=== PATIENT | female | born 1950 | race Caucasian/White ===

== ENCOUNTER 2021-04-02 18:09 | Inpatient (IN) | payer MEDICARE ==
[2021-04-02] MEDS ORDERED: SODIUM CHLORIDE 0.9% 500 ML 500 ML IV STA (18:34)
[2021-04-02] MEDS ORDERED: ONDANSETRON 4 MG/2 ML VIAL IVP STA (18:35)
[2021-04-02 19:40] LABS: Basophils % (A) 0 %; Eosinophils # (A) 0.1 k/uL (0-0.7); Eosinophils % (A) 1 %; HCT 41.1 % (34.0-46.0); HGB 13.3 gm/dL (11.4-16.0); Lymphocytes # (A) 1.1 k/uL (1.0-4.8); Lymphocytes % (A) 10 %; MCH 30.4 pg (25.0-35.0); MCHC 32.4 g/dL (31.0-37.0); Mean Platelet Volume 7.5; Monocytes # (A) 0.4 k/uL (0-1.0); Monocytes % (A) 4 %; Neutrophils % (A) 84 %; Platelet Count 235 k/uL (150-450); RBC 4.37 m/uL (3.80-5.40); RDW 13.3 % (11.5-15.5); WBC 10.8 k/uL (3.8-10.6)
[2021-04-02 19:52] LABS: ALT 13 U/L (4-34); AST 23 U/L (14-36); African American GFR (CKD) >90 (>60 ml/min/1.73 sqM); Albumin 4.2 g/dL (3.5-5.0); Alkaline Phosphatase 55 U/L (38-126); Anion Gap 11 mmol/L; Blood Urea Nitrogen 33 mg/dL (7-17); Calcium 9.4 mg/dL (8.4-10.2); Carbon Dioxide 23 mmol/L (22-30); Chloride 106 mmol/L (98-107); Glucose 100 mg/dL (74-99); Non-African American GFR(CKD) 90 (>60 ml/min/1.73 sqM); Potassium 4.1 mmol/L (3.5-5.1); Sodium 140 mmol/L (137-145); Total Bilirubin 0.4 mg/dL (0.2-1.3)
--- NOTE | 2021-04-02 20:08 | ED ---
General Adult HPI - General Chief complaint: Neuro Symptoms/Deficit Stated complaint: nausea Time Seen by Provider: 04/02/21 18:11 Source: patient, RN notes reviewed, old records reviewed Mode of arrival: ambulatory Limitations: no limitations - History of Present Illness Initial comments: 70-year-old female presents with sudden onset nausea and blurry vision. Patient was transported by EMS. Just prior to arrival she had developed sensation of blurry vision or perhaps double vision. This was associated with nausea without vomiting. She denies headache. She denies any limb numbness or weakness. She denies any slurred speech. She states that the nausea is present but improved she has some persistent visual disturbance. Her had noted that her left pupil was larger than her right pupil. No previous history of aneurysm. No previous history of CVA or TIA. - Related Data Home Medications Medication Instructions Recorded Confirmed Cetirizine HCl [Zyrtec] 10 mg PO HS 04/02/21 04/02/21 Cholecalciferol [Vitamin D3 (25 25 mcg PO DAILY 04/02/21 04/02/21 Mcg = 1000 Iu)] Cyanocobalamin (Vitamin B-12) 1,000 mcg PO HS 04/02/21 04/02/21 [Vitamin B-12] Fluticasone Nasal [place] [Flonase 1 spray EA NOSTRIL HS 04/02/21 04/02/21 Nasal [place]] Levothyroxine Sodium [Synthroid] 100 mcg PO DAILY 04/02/21 04/02/21 [place] 3-6-7 1 cap PO HS 04/02/21 04/02/21 Ubidecarenone [Co Q-10] 100 mg PO HS 04/02/21 04/02/21 Zinc/Vitamin D 1 tab PO HS 04/02/21 04/02/21 atenoloL [Tenormin] 25 mg PO DAILY 04/02/21 04/02/21 Allergies Allergy/AdvReac Type Severity Reaction Status Date / Time No Known Allergies Allergy Unverified 04/02/21 20:39 Review of Systems ROS Statement: Those systems with pertinent positive or pertinent negative responses have been documented in the HPI. ROS Other: All systems not noted in ROS Statement are negative. Past Medical History History of Any Multi-Drug Resistant Organisms: None Reported Past Psychological History: No Psychological Hx Reported Smoking Status: Never smoker Past Alcohol Use History: None Reported Past Drug Use History: None Reported General Exam Limitations: no limitations General appearance: alert, in no apparent distress Head exam: Present: atraumatic, normocephalic Eye exam: Present: other (Patient has asymmetric pupil exam, 3 mm on the right, 4 mm on the left, both are reactive. ) ENT exam: Present: normal exam Neck exam: Present: normal inspection. Absent: tenderness, meningismus Respiratory exam: Present: normal lung sounds bilaterally. Absent: respiratory distress, wheezes Cardiovascular Exam: Present: regular rate, normal rhythm GI/Abdominal exam: Present: soft. Absent: distended, tenderness, guarding, rebound Extremities exam: Present: normal inspection, normal capillary refill. Absent: pedal edema Neurological exam: Present: alert, oriented X3 Psychiatric exam: Present: normal affect, normal mood Skin exam: Present: warm, dry, intact. Absent: cyanosis, diaphoretic Course Vital Signs 04/02/21 19:40 Temperature 98.7 F Pulse Rate 80 Respiratory 16 Rate Blood Pressure 127/75 O2 Sat by Pulse 99 Oximetry EKG Findings - EKG Comments: EKG Findings:: EKG: Sinus rhythm with PAC rate is 74, DC interval 184, QRS duration 80, QTC 437, no ST segment elevation. Medical Decision Making - Medical Decision Making 70-year-old female with sudden onset of a lesion, nausea without vomiting. Patient has no ataxia on exam. Normal finger to nose, no nystagmus. She has relatively preserved extraocular movements. She has a 4 or 5 mm pupil on the left and a 3 mm pupil on the right. Both are reactive. Her double vision is resolved with unilateral site. Patient has no headache. I did perform CT CT angiography CT is negative for intracranial hemorrhage or mass effect this was performed in less than 2 hours from the onset of symptoms. 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 I did review this finding both with Dr. Gio pool for neurology and with the stroke neurologist Dr. Larios, it is recommended the patient receive MRI and depending on these results she should follow-up with the stroke intervention Dr Larios. Patient will be admitted to internal medicine, Dr. Hernandez, is able to evaluate the patient in the emergency department. - Lab Data Result diagrams: 04/02/21 19:15 04/02/21 19:15 Lab Results 04/02/21 04/02/21 04/02/21 Range/Units 19:15 19:15 19:15 WBC 10.8 H (3.8-10.6) k/uL RBC 4.37 (3.80-5.40) m/uL Hgb 13.3 (11.4-16.0) gm/dL Hct 41.1 (34.0-46.0) % MCV 94.0 (80.0-100.0) fL MCH 30.4 (25.0-35.0) pg MCHC 32.4 (31.0-37.0) g/dL RDW 13.3 (11.5-15.5) % Plt Count 235 (150-450) k/uL MPV 7.5 Neutrophils % 84 % Lymphocytes % 10 % Monocytes % 4 % Eosinophils % 1 % Basophils % 0 % Neutrophils # 9.0 H (1.3-7.7) k/uL Lymphocytes # 1.1 (1.0-4.8) k/uL Monocytes # 0.4 (0-1.0) k/uL Eosinophils # 0.1 (0-0.7) k/uL Basophils # 0.0 (0-0.2) k/uL PT 10.1 (9.0-12.0) sec INR 0.9 (<1.2) APTT 22.0 (22.0-30.0) sec Sodium 140 (137-145) mmol/L Potassium 4.1 (3.5-5.1) mmol/L Chloride 106 (98-107) mmol/L Carbon Dioxide 23 (22-30) mmol/L Anion Gap 11 mmol/L BUN 33 H (7-17) mg/dL Creatinine 0.67 (0.52-1.04) mg/dL Est GFR (CKD-EPI)AfAm >90 (>60 ml/min/1.73 sqM) Est GFR (CKD-EPI)NonAf 90 (>60 ml/min/1.73 sqM) Glucose 100 H (74-99) mg/dL Plasma Lactic Acid Jerman (0.7-2.0) mmol/L Calcium 9.4 (8.4-10.2) mg/dL Magnesium 2.0 (1.6-2.3) mg/dL Total Bilirubin 0.4 (0.2-1.3) mg/dL AST 23 (14-36) U/L ALT 13 (4-34) U/L Alkaline Phosphatase 55 (38-126) U/L Troponin I (0.000-0.034) ng/mL Total Protein 7.0 (6.3-8.2) g/dL Albumin 4.2 (3.5-5.0) g/dL 04/02/21 04/02/21 Range/Units 19:15 19:15 WBC (3.8-10.6) k/uL RBC (3.80-5.40) m/uL Hgb (11.4-16.0) gm/dL Hct (34.0-46.0) % MCV (80.0-100.0) fL MCH (25.0-35.0) pg MCHC (31.0-37.0) g/dL RDW (11.5-15.5) % Plt Count (150-450) k/uL MPV Neutrophils % % Lymphocytes % % Monocytes % % Eosinophils % % Basophils % % Neutrophils # (1.3-7.7) k/uL Lymphocytes # (1.0-4.8) k/uL Monocytes # (0-1.0) k/uL Eosinophils # (0-0.7) k/uL Basophils # (0-0.2) k/uL PT (9.0-12.0) sec INR (<1.2) APTT (22.0-30.0) sec Sodium (137-145) mmol/L Potassium (3.5-5.1) mmol/L Chloride (98-107) mmol/L Carbon Dioxide (22-30) mmol/L Anion Gap mmol/L BUN (7-17) mg/dL Creatinine (0.52-1.04) mg/dL Est GFR (CKD-EPI)AfAm (>60 ml/min/1.73 sqM) Est GFR (CKD-EPI)NonAf (>60 ml/min/1.73 sqM) Glucose (74-99) mg/dL Plasma Lactic Acid Jerman 1.0 (0.7-2.0) mmol/L Calcium (8.4-10.2) mg/dL Magnesium (1.6-2.3) mg/dL Total Bilirubin (0.2-1.3) mg/dL AST (14-36) U/L ALT (4-34) U/L Alkaline Phosphatase (38-126) U/L Troponin I <0.012 (0.000-0.034) ng/mL Total Protein (6.3-8.2) g/dL Albumin (3.5-5.0) g/dL Disposition Clinical Impression: Cerebrovascular accident (CVA), Diplopia, Third nerve palsy of left eye Disposition: ADMITTED IP TO THIS [facility] Condition: Stable Is patient prescribed a controlled substance at d/c from ED?: No Referrals: Nonstaff,Physician [REFERRING] - 1-2 days Time of Disposition: 21:35 Decision to Admit Reason: Admit from EC Decision Date: 04/02/21 Decision Time: 21:35
[2021-04-02 20:12] LABS: INR 0.9 (<1.2); Prothrombin Time 10.1 sec (9.0-12.0)
--- NOTE | 2021-04-02 20:38 | CT ---
EXAMINATION TYPE: CT brain wo con DATE OF EXAM: 04/02/2021 COMPARISON: None HISTORY: weakness, dizziness CT DLP: 1161.2 mGycm Automated exposure control for dose reduction was used. There is cerebral cortical atrophy. There is no mass effect nor midline shift. There is no sign of in tracranial hemorrhage. Calvarium is intact. Skull base is intact. There is normal aeration of the mas toid sinuses. IMPRESSION: Cerebral atrophy. No acute intracranial abnormality.
--- NOTE | 2021-04-02 20:39 | XR ---
EXAMINATION TYPE: XR chest 2V DATE OF EXAM: 04/02/2021 COMPARISON: NONE HISTORY: Weakness TECHNIQUE: 2 view FINDINGS: Heart is normal. Lungs are clear of consolidation. There are no hilar masses. There is mild thoracic dextroscoliosis. There is a mild thoracolumbar kyphotic curvature. IMPRESSION: No active cardiopulmonary disease. Normal heart.
--- NOTE | 2021-04-02 20:53 | CT ---
EXAMINATION TYPE: CT angio head neck DATE OF EXAM: 04/02/2021 COMPARISON: None HISTORY: weakness, dizziness CT DLP: 319.4 mGycm Automated exposure control for dose reduction was used. CONTRAST: Performed with IV Contrast, patient injected with 65cc mL of Isovue 370. Images obtained from the aortic arch to the vertex of the brain with IV contrast. There are 3-D post processed images. There is normal branching pattern of the great vessels on the aortic arch. There is bilateral arteria l flow in the subclavian arteries. There is no evidence of aortic dissection. There is arterial flow in the common internal and external arteries bilaterally. There is arterial flow in both vertebral ar teries. There is wide patency of the carotid artery bifurcations. There is no evidence of carotid or vertebral artery aneurysm or dissection. There is arterial flow in the vertebrobasilar artery system. There is arterial flow in the anterior middle and posterior cerebral arteries bilaterally. There is n o mass effect. There is no sign of intracranial neovascularity. There is no evidence of intracranial arterial stenosis. There is normal enhancement of the venous sinuses. There is bulbous appearance of the tip of the basilar artery. This measures 4.5 mm. IMPRESSION: Negative CT angiogram of the neck. There is a minimal aneurysm of the tip of the basilar artery. Othe rwise negative CT angiogram of the brain.
[2021-04-02] MEDS ORDERED: ASPIRIN 325 MG TAB PO STA (21:25)
[2021-04-02] MEDS ORDERED: ACETAMINOPHEN TAB 325 MG TAB PO PRN (21:25)
[2021-04-02] MEDS: SODIUM CHLORIDE 0.9% 1,000 ML IV SCH (21:39)
--- NOTE | 2021-04-02 22:17 | P.HPIM ---
History of Present Illness H&P Date: 04/02/21 The patient is a 70-year-old female with a PMH of hypothyroidism who presents to the emergency room with complaints of double vision. Patient reports that she was in her usual state of health until about 4:30 PM this evening when she suddenly developed double vision while attempting to get ready to go out. She had her check her eyes, who told her that her pupils were of different size and were not facing the same direction, at which time they decided to come to the emergency room. The patient to denied any history of double vision in the past but states she had a bout of vertigo in 2014 which was self-limiting. She denied experiencing weakness, numbness, tingling, headaches, neck pain. Also denied speech impairment or impaired gait. Denied fever, chills, chest pain, SOB. Reported some nausea which had resolved by the time of interview. Denied abdominal pain or diarrhea. In the emergency room, a head and neck CTA revealed a minimal aneurysm of the tip of the basilar artery but was otherwise unremarkable. Brain CT was unremarkable. CXR was unremarkable. EKG revealed sinus rhythm @ 74 bpm with APCs with no ST-T wave changes noted as reviewed by me. Laboratory evaluation was reviewed. Review of systems: Pertinent positives and negatives as discussed in HPI, a complete review of systems was performed and all other systems are negative. Physical examination: General: non toxic, no distress, appears at stated age, normal weight Derm: no unusual rashes/lesions no unusual ecchymoses, warm, dry Head: atraumatic, normocephalic, symmetric Eyes: Anisocoria with R eye 2 mm and L eye 2.5 - 3 mm, Right eye abducted and depressed, meghann pupils reactive to light, no abnormal nystagmus noted, EOMI otherwise, no ptosis noted, no lid lag, anicteric sclera ENT: Nose and ears atraumatic, no thrush, no pharyngeal erythema Neck: No thyromegaly, no cervical lymphadenopathy, trachea midline, supple Mouth: no lip lesion, mucus membranes moist Cardiovascular: S1S2 reg, no murmur, positive posterior tibial pulse bilateral, no edema, capillary refill less than 2 seconds Lungs: CTA bilateral, no rhonchi, no rales , no accessory muscle use Abdominal: soft, nontender to palpation, no guarding, no appreciable organomegaly, normal bowel sounds Ext: no gross muscle atrophy, muscle strength 5 out of 5 in all 4 extremities grossly, no contractures, Neuro: Light touch intact all 4 extremities, finger to nose within normal limits, no focal deficits noted Psych: Alert, oriented, appropriate affect Assessment/plan Sudden onset diplopia with anisocoria -Suspicious for 3rd nerve palsy -Top differentials include CVA and structural lesions in setting of basilar artery aneurysm albeit small -Neurology consulted -Fall precautions -Neuro checks -Echocardiogram -MATERIAL DAMAGE ADJUSTER eval -Cardiac monitoring Chronic conditions: Hypothyroidism -Continue with home meds DVT prophylaxis -Heparin subq The patient is admitted with an anticipated greate than 2 midnight stay for evaluation of diplopia CODE STATUS: Full Code Discussed with: Patient Anticipated discharge date: 2-[address]: Home Past Medical History History of Any Multi-Drug Resistant Organisms: None Reported Past Psychological History: No Psychological Hx Reported Smoking Status: Never smoker Past Alcohol Use History: None Reported Past Drug Use History: None Reported Medications and Allergies Home Medications Medication Instructions Recorded Confirmed Type Cetirizine HCl [Zyrtec] 10 mg PO HS 04/02/21 04/02/21 History Cholecalciferol [Vitamin D3 (25 25 mcg PO DAILY 04/02/21 04/02/21 History Mcg = 1000 Iu)] Cyanocobalamin (Vitamin B-12) 1,000 mcg PO HS 04/02/21 04/02/21 History [Vitamin B-12] Fluticasone Nasal [place] [Flonase 1 spray EA NOSTRIL HS 04/02/21 04/02/21 History Nasal [place]] Levothyroxine Sodium [Synthroid] 100 mcg PO DAILY 04/02/21 04/02/21 History [place] 3-6-7 1 cap PO HS 04/02/21 04/02/21 History Ubidecarenone [Co Q-10] 100 mg PO HS 04/02/21 04/02/21 History Zinc/Vitamin D 1 tab PO HS 04/02/21 04/02/21 History atenoloL [Tenormin] 25 mg PO DAILY 04/02/21 04/02/21 History Allergies Allergy/AdvReac Type Severity Reaction Status Date / Time No Known Allergies Allergy Unverified 04/02/21 20:39 Physical Exam Vitals: Vital Signs Temp Pulse Resp BP Pulse Ox 04/02/21 19:40 98.7 F 80 16 127/75 99 Intake and Output 04/02/21 04/02/21 04/02/21 06:59 14:59 22:59 Other: Weight 57.606 kg Results CBC & Chem 7: 04/02/21 19:15 04/02/21 19:15 Labs: Abnormal Lab Results - Last 24 Hours (Table) 04/02/21 04/02/21 Range/Units 19:15 19:15 WBC 10.8 H (3.8-10.6) k/uL Neutrophils # 9.0 H (1.3-7.7) k/uL BUN 33 H (7-17) mg/dL Glucose 100 H (74-99) mg/dL
[2021-04-02 23:47] LABS: Appearance,Urine Clear (Clear); Bilirubin,Urine Negative (Negative); Blood,Urine Negative (Negative); Color,Urine Yellow; Glucose,Urine (UA) Negative (Negative); Ketones,Urine 2+ (Negative); Leukocyte Esterase,Urine Negative (Negative); Nitrite,Urine Negative (Negative); Protein,Urine Negative (Negative); Urobilinogen,Urine <2.0 mg/dL (<2.0)
[2021-04-02 23:49] LABS: Specific Gravity,Urine >1.050 (1.001-1.035)
[2021-04-03] MEDS: HEPARIN SODIUM,PORCINE/PF 5,000 UNIT/0.5 ML SYRINGE SQ SCH ×4 (02:00→22:55)
[2021-04-03] MEDS ORDERED: LEVOTHYROXINE 100 MCG TAB PO SCH (06:30)
[2021-04-03 07:00] LABS: HGB 11.9 gm/dL (11.4-16.0); MCH 30.5 pg (25.0-35.0); MCHC 33.1 g/dL (31.0-37.0); MCV 92.1 fL (80.0-100.0); Mean Platelet Volume 7.3; Platelet Count 205 k/uL (150-450); RBC 3.91 m/uL (3.80-5.40); RDW 12.9 % (11.5-15.5); WBC 8.1 k/uL (3.8-10.6)
[2021-04-03 07:38] LABS: African American GFR (CKD) >90 (>60 ml/min/1.73 sqM); Anion Gap 3 mmol/L; Blood Urea Nitrogen 28 mg/dL (7-17); Calcium 9.1 mg/dL (8.4-10.2); Carbon Dioxide 26 mmol/L (22-30); Chloride 110 mmol/L (98-107); Glucose 86 mg/dL (74-99); Non-African American GFR(CKD) 87 (>60 ml/min/1.73 sqM); Potassium 4.3 mmol/L (3.5-5.1); Sodium 139 mmol/L (137-145)
[2021-04-03] MEDS ORDERED: ATORVASTATIN 40 MG TAB PO STA (08:47)
[2021-04-03] MEDS ORDERED: ASPIRIN 325 MG TAB PO SCH (09:00)
[2021-04-03] MEDS ORDERED: ATENOLOL 25 MG PO SCH (09:00)
[2021-04-03] MEDS: ATENOLOL 25 MG PO SCH (09:46)
[2021-04-03] MEDS: THYROXINE PO SCH (09:46)
[2021-04-03] MEDS: SODIUM CHLORIDE 0.9% 1,000 ML IV SCH ×2 (11:12→22:20)
[2021-04-03] MEDS: ASPIRIN 81 MG PO SCH (11:55)
[2021-04-03 11:56] LABS: Chol/HDL Ratio 2.07 Ratio
--- NOTE | 2021-04-03 12:23 | P.CNNES ---
History of Present Illness Consult date: 04/03/21 Requesting physician: George Fabian Reason for Consult: CVA, 3rd CN palsy History of Present Illness: This is a 70-year-old woman who presented emergency department via EMS on 04/02/2021 because of sudden onset of nausea, vomiting and diplopia. Patient presents our facility at around 1809 and noticed double vision associate with nausea and vomiting around possibly 4:30ishpm yesterday. She is accompanied with her . Her noticed that her left pupil is larger than the right. He felt she is having double vision of both eyes and she feels it [id number] and she closes either eye and that resolved. She denied of any headache, any focal weakness or numbness, slurring of the speech. Denies any ringing of the ears or hearing loss. She denies any history of stroke or TIAs in the past. He is not on any antiplatelets or any statins. She denies any history of brain aneurysm that she was told off. Per the patient's nurse her large pupil has resolved on her examination. Patient currently feels the same. Some other workup in the hospital consisted of: She'll vital signs his blood pressure of 127/75, heart rate of 80, RR 16, temperature 98.7F oral and Pulse oxy 99% at Room air. CT of the head is reported as cerebral atrophy. No acute intracranial abnormality. Personally reviewed the CT of the head and there is no acute or subacute ischemia and there is no intraparenchymal hemorrhage. The patient does have bilateral frontal atrophy that is mild to moderate at in significance. Patient had CTA of the head and neck was reported as negative CT angiography of the neck while the patient has minimal aneurysm of the tip of the basilar artery in the body of the report it measures about 4.5 mm. Initial white blood cells 10.8 and the repeat his 8.1 which is normal on the second time and that it's unremarkable of CBC on the second time. Sodium is 140, creatinine is 0.67, glucose is 100, calcium 9.4, magnesium 2.0, AST of 23 and ALT of 13. Urinalysis is negative for urinary tract infection. Coronavirus PCR is undetected The ED team spoke to me via phone regarding that the patient and I notified them to speak with the stroke team regarding the aneurysm. The ED team spoke with Rj Larios and recommended MRI and depending on the result follow up with stroke intervention with a Dr. Larios. Review of Systems Review of system: The 12 point system was reviewed and apparent positive and negative per HPI. Past Medical History History of Any Multi-Drug Resistant Organisms: None Reported Past Psychological History: No Psychological Hx Reported Smoking Status: Never smoker Past Alcohol Use History: None Reported Past Drug Use History: None Reported - Past Family History Father Family Medical History: Cancer Additional Family Medical History / Comment(s): Father had lung cancer. He was a smoker. Mother Family Medical History: Musculoskeletal Disorder, Neurologic Disorder Additional Family Medical History / Comment(s): Mother had parkinson's Medications and Allergies Home Medications Medication Instructions Recorded Confirmed Type Cetirizine HCl [Zyrtec] 10 mg PO HS 04/02/21 04/02/21 History Cholecalciferol [Vitamin D3 (25 25 mcg PO DAILY 04/02/21 04/02/21 History Mcg = 1000 Iu)] Cyanocobalamin (Vitamin B-12) 1,000 mcg PO HS 04/02/21 04/02/21 History [Vitamin B-12] Fluticasone Nasal [place] [Flonase 1 spray EA NOSTRIL HS 04/02/21 04/02/21 History Nasal [place]] Levothyroxine Sodium [Synthroid] 100 mcg PO DAILY 04/02/21 04/02/21 History [place] 3-6-7 1 cap PO HS 04/02/21 04/02/21 History Ubidecarenone [Co Q-10] 100 mg PO HS 04/02/21 04/02/21 History Zinc/Vitamin D 1 tab PO HS 04/02/21 04/02/21 History atenoloL [Tenormin] 25 mg PO DAILY 04/02/21 04/02/21 History Allergies Allergy/AdvReac Type Severity Reaction Status Date / Time No Known Allergies Allergy Unverified 04/02/21 20:39 Physical Examination - Vital Signs Vital Signs: Vital Signs Temp Pulse Pulse Resp BP BP Pulse Ox 04/03/21 07:55 98.6 F 77 16 121/87 98 04/03/21 06:04 82 16 127/87 95 04/03/21 01:00 58 L 16 110/68 93 L 04/02/21 22:15 79 16 133/81 98 04/02/21 19:40 98.7 F 80 16 127/75 99 Intake and Output 04/02/21 04/03/21 04/03/21 22:59 06:59 14:59 Other: Weight 57.606 kg GENERAL: The patient is lying in bed and is not in acute distress. CHEST: The heart rate is regular rate rhythm. No murmurs to auscultation. No carotid bruit bilaterally. LUNG: Clear to auscultation bilaterally no wheezing noted throughout. Not labored breathing. ABDOMEN/GI: Bowel sounds present in all 4 quadrants. No tenderness to palpation throughout. NEUROLOGICAL: Higher mental function: The patient is awake, alert, oriented to self, place and time. Patient is following commands. No aphasia and no neglect. Cranial nerves: The pupils are round, equal (3mm) bilaterally and reactive to light and accommodation. Visual [place] are full to confrontation throughout. She has diplopia when both eyes are open but resolves when either eye is close. Extraocular movement: Seems some restriction in moving eyes upwards bilaterally. No appreciable nystagmus. Facial sensation is normal to touch throughout. The facial strength is normal throughout. Hearing is normal bilaterally to hand rub. Tongue is midline and moved [id number] without any difficulty. No dysarthria is noted. Shoulder shrug is normal bilaterally. Motor: The strength is 5 over 5 throughout. Normal tone and bulk. Cerebellum: Normal finger to nose heel to davis bilaterally. Sensation: Sensation is normal to touch throughout. Reflexes (right/left): 2+ throughout. Plantars are downgoing bilaterally. Results - Laboratory Findings CBC and BMP: 04/03/21 05:43 04/03/21 05:43 Abnormal Lab Findings: Abnormal Labs 04/02/21 04/02/21 04/02/21 19:15 19:15 22:51 WBC 10.8 H Neutrophils # 9.0 H Chloride BUN 33 H Glucose 100 H Ur Specific [place] >1.050 H Urine Ketones 2+ H 04/03/21 05:43 WBC Neutrophils # Chloride 110 H BUN 28 H Glucose Ur Specific [place] Urine Ketones Assessment and Plan Assessment: Diplopia over both eyes (resolves covering either eye) and had ?enlarged pupil on the left per (but today's examination equal size) and on examination had vertical gaze defect. Unsure exact cause. I think possibly the basilar aneurysm is incidental finding. Rule out stroke. Left Basilar aneurysm (4.5mm on CTA) Plan: I ordered MRI of the brain without and Ordered MRA head. ASA 325mg was given once. Patient was started on ASA 81mg daily and Lipitor 40mg qhs. 2D echo, Lipid panel, HbA1c. PT, OT and AUTO FLEET MAINTENANCE MANAGER are consulted. Consulted Ophthalmology consultation. Continue neuro checks Continue Cardiac monitoring Will defer the rest of medical management to the primary team. Regarding patient's basilar aneurysm. Patient is to follow-up with Dr. Larios as outpatient. Thank you for the consultation. Mansoor Powers MD Neuro-Hospitalist Time with Patient: Greater than 30
--- NOTE | 2021-04-03 12:59 | MR ---
MR brain without contrast HISTORY: Visual disturbance, cerebrovascular accident, double vision, weakness and vertigo Multiplanar multisequence imaging obtained through the brain and correlated to prior CT brain 021 There is restricted diffusion seen at the level of the left occipital cortex, axial image 16 series 5 03 and 505, corresponding increase signal noted on inversion recovery and T2-weighted sequences, smal l focus of increased signal also noted consistent with restricted diffusion within the region of the posterior aspect of the red nucleus on the left, possibly the medial longitudinal fasciculus and [place] nucleus, possible involvement of the oculomotor nucleus. Scattered periventricular, subc ortical hyperintensities present on inversion recovery T2-weighted sequences. There is no evident hem orrhage or hydrocephalus. There are expected vascular flow voids. Orbits show interpreted globe on th e right as compared to the left consistent with patient's history. Inflammatory change present in the ethmoid air cells. Cerebellopontine angles, corpus callosum, pituitary, cervical medullary junction are within normal limits. Cortical atrophy is noted. IMPRESSION: Findings consistent with cerebral vascular infarcts as described, age-related atrophy and probable chronic small vessel ischemia
--- NOTE | 2021-04-03 13:08 | MR ---
EXAMINATION TYPE: MR angio head wo con DATE OF EXAM: 04/03/2021 COMPARISON: MR brain same date HISTORY: Aneurysm - Basilar? / Double Vision, cerebrovascular accident TECHNIQUE: Time of flight images focusing on the [place] were performed without contrast. Th ree-dimensional reconstructions performed on an alternate workstation. FINDINGS: Anterior and posterior circulation are patent and intact. No evident dissection, aneurysm, stenosis, or embolus. IMPRESSION: Unremarkable MRA [place]
[2021-04-03] MEDS ORDERED: ARTIFICIAL TEARS-HYPROMELLOSE DROPS 15 ML BTL BOTH EYES PRN (13:14)
[2021-04-03] MEDS ORDERED: TROPICAMIDE 1% OPHTH DROPS 2 ML BTL BOTH EYES ONE (13:14)
[2021-04-03] MEDS ORDERED: PROPARACAINE 0.5% OPHTH DROPS 15 ML BTL BOTH EYES STA (13:14)
[2021-04-03] MEDS: PHENYLEPHRINE 2.5% OPHTH DRP 2ML BOTH EYES SCH (14:02)
--- NOTE | 2021-04-03 14:49 | P.PN ---
Subjective Progress Note Date: 04/03/21 MRI Brain demonstrates multiple CVAs. Pt still with diplopia. Objective - Vital Signs Vital signs: Vital Signs Temp 98.6 F 04/03/21 07:55 Pulse 73 04/03/21 11:53 Resp 16 04/03/21 11:53 BP 137/74 04/03/21 11:53 Pulse Ox 97 04/03/21 11:53 Intake & Output 04/02/21 04/03/21 04/03/21 18:59 06:59 18:59 Intake Total 250 Balance 250 Weight 57.606 kg 57.606 kg Intake: Oral 250 - Exam Gen: awake, alert HEENT: normocephalic, atraumatic, good hearing acuity, moist mucous membranes Resp: good air exchange, breathing comfortably with no accessory muscle use CVS: good distal perfusion x 4, GI: soft, NTTP, ND : no SPT, no CVAT, barriga catheter not present MSK: no pitting edema, no clubbing Neuro: 5 out of 5 motor strength, no sensory deficits Psych: cooperative, euthymic mood - Labs CBC & Chem 7: 04/03/21 05:43 04/03/21 05:43 Labs: Abnormal Lab Results - Last 24 Hours (Table) 04/02/21 04/02/21 04/02/21 Range/Units 19:15 19:15 22:51 WBC 10.8 H (3.8-10.6) k/uL Neutrophils # 9.0 H (1.3-7.7) k/uL Chloride (98-107) mmol/L BUN 33 H (7-17) mg/dL Glucose 100 H (74-99) mg/dL HDL Cholesterol (40.00-60.00) mg/dL Ur Specific [place] >1.050 H (1.001-1.035) Urine Ketones 2+ H (Negative) 04/03/21 Range/Units 05:43 WBC (3.8-10.6) k/uL Neutrophils # (1.3-7.7) k/uL Chloride 110 H (98-107) mmol/L BUN 28 H (7-17) mg/dL Glucose (74-99) mg/dL HDL Cholesterol 85.70 H (40.00-60.00) mg/dL Ur Specific [place] (1.001-1.035) Urine Ketones (Negative) Assessment and Plan Assessment: Sudden onset diplopia with anisocoria Acute Stroke -Neurology consulted -Fall precautions -Neuro checks -Echocardiogram -DIRECTOR OF ESTATE eval -Cardiac monitoring -ASA, Statin ordered -Cardiology consulted for BC Chronic conditions: Hypothyroidism -Continue with home meds DVT prophylaxis -Heparin subq The patient is admitted with an anticipated greate than 2 midnight stay for evaluation of diplopia CODE STATUS: Full Code Discussed with: Patient Anticipated discharge date: 2-[address]: Home
--- NOTE | 2021-04-03 17:46 | ECHOF ---
Referral Reason:Thrombus MEASUREMENTS -------- HEIGHT: 165.1 cm WEIGHT: 57.6 kg BP: RVIDd: 2.3 cm (< 3.3) IVSd: 1.3 cm (0.6 - 1.1) LVIDd: 3.4 cm (3.9 - 5.3) LVPWd: 1.5 cm (0.6 - 1.1) IVSs: 1.5 cm LVIDs: 2.8 cm LVPWs: 1.2 cm LA Diam: 3.1 cm (2.7 - 3.8) Ao Diam: 3.1 cm (2.0 - 3.7) AV Cusp: 1.5 cm (1.5 - 2.6) LA Diam: 3.9 cm (2.7 - 3.8) MV EXCURSION: 27.766 mm (> 18.000) MV EF SLOPE: 135 mm/s (70 - 150) EPSS: 0.5 cm MV E Deepak: 0.69 m/s MV DecT: 171 ms MV A Deepak: 0.68 m/s MV E/A Ratio: 1.02 AR PHT: 559 ms RAP: 5.00 mmHg RVSP: 29.66 mmHg FINDINGS -------- Sinus rhythm. This was a technically good study. LV size, wall thickness and systolic function are normal, with an EF greater than 55%. The left [place] tricular size is normal. The right ventricle is normal in size. The left atrial size is normal. The right atrial size is normal. There is mild aortic regurgitation. Mild mitral regurgitation is present. Mild tricuspid regurgitation present. Right ventricular systolic pressure is normal at < 35 mmHg. There is no pulmonic regurgitation present. There is no pericardial effusion. CONCLUSIONS -------- 1. LV size, wall thickness and systolic function are normal, with an EF greater than 55%. 2. The left ventricular size is normal. 3. The right ventricle is normal in size. 4. The left atrial size is normal. 5. The right atrial size is normal. 6. There is mild aortic regurgitation. 7. Mild mitral regurgitation is present. 8. Mild tricuspid regurgitation present. 9. There is no pericardial effusion. CROZE CUTTER: Tara Swan RDCS
--- NOTE | 2021-04-03 18:08 | P.CON ---
Consult Note - . Consult date: 04/03/21 Assessment/Plan:: This is a 70 y/o female who presents with history of obtaining a Covid-19 nasal swabbing and then about 2-3 hours later having a significant change in her perception of the world around her. She became aware of a strange feeling with a noted double vision. She noted with the right eye she appreciated objects up and to her right, and left slightly down and left. She feels the sensation which is associated with her double vision was similar a while ago to when she experienced vertigo and through [place] maneuvers and time have since resolved. Her current appreciation of diplopia has not improved or necessarily worsened since this episode began. She denied any additional neurological symptoms, e.g., weakness, slurring of speech, lack of sensation or any other signs or symptoms of a neurological nature. She and her presented to the ER very shortly after the onset of symptoms. 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 Her past ophthalmic history is unremarkable for any surgical intervention or underlying problems, including any previous history of childhood strabismus or amblyopia. Her glasses were updated in 2019, and was told that she is developing cataracts and was under suspicion for possible glaucoma, none of which has been actively treated at this time. Her current medications are significant for atenolol and levothyroxine. There is no noted history of underlying problems. However, nursing staff has noted there was a distant past DVT of a lower extremity, and possible cardiac arrhythmia. PE: VA w/ glasses 20/20 OD, 20/20 OS IOP: Tonopen 15 mm Hg OD, 16 mm Hg OS Pupils: mild ansicoria without any overt APD appreciated EOM: movement is variable in each of the eyes. There is diplopia in nearly all escobedo of gaze. for the most part lateral rectus is intact OU, There is signficant loss of vertical gaze both upwards as well as downwards. There is a vertical nystagmus especially in upgaze but noted more predominantly right sided as well as horizontal more in abduction than adduction. I cannot appreciate an especially "down and out gaze" from either eye, but a general lack of coordination when performing versions. Both eyes demonstrate a slightly different amount of deviation in different directions. The right eye over adducts straight ahead, either will demonstrate an exotropia at different points while performing versions. CF: normal OU Ext: no overt facial faccidity Dilated: neosynephrine & tropicamide @ 1400. expected dilation ~ 6-7 SLE: Lids/lashses; normal Conjunctiva:white/quiet Cornea: clear AC: deep quiet Iris: no pathology, no weakness on constriction with light Lens: 2+ NS, 2+CS OD>OS Vit: normal age-related PVD Optic nerve: S/F/P C:D 0.35 Mac: quiet, mild FLR reflex Vascular: normal caliber without attenuation/crossing/Hollenhorsts Peripheral: unremarkable A: 1) new onset diplopia, primarily left-sided SIVA, but cannot totally rule out possible bilateral involvement. There is no vertical movement in either eye, nystagmus noted vertically as well as horizontally especially on right lateral gaze. I believe my supposition is supported by the read noted on the MRI. There is no noted 3rd nerve palsy on my examination P: I appreciate your consideration for consultation, and will provide more complete assessment or her problem on discharge. There I can attempt to reduce if not alleviate patient's symptoms with appropriate corrective options, over time.
[2021-04-03] MEDS: FLUTICASONE 50MCG/SPRAY NASAL 16GM EA NOSTRIL SCH (20:07)
[2021-04-03] MEDS: CLOPIDOGREL 75 MG TAB PO SCH (20:07)
[2021-04-03] MEDS ORDERED: ATORVASTATIN 40 MG TAB PO SCH (21:00)
[2021-04-04] MEDS ORDERED: fentaNYL (PF) 50 MCG/ML 2 ML AMP ONE (09:52)
[2021-04-04] MEDS ORDERED: SODIUM CHLORIDE 0.9% 500 ML 500 ML IV ONE (10:23)
[2021-04-04] MEDS ORDERED: BENZOCAINE SPRAY 1 CAN MUCOUS MEM ONE (10:43)
[2021-04-04] MEDS ORDERED: METOPROLOL TARTRATE 5 MG/5 ML VIAL IVP ONE (10:45)
--- NOTE | 2021-04-04 10:46 | P.CRDCN ---
History of Present Illness History of present illness: HISTORY OF PRESENTING ILLNESS This is a pleasant 70-year-old female past medical history significant for hypothyroidism. 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 We have been asked to see in consultation for BC. Patient presented to the emergency department on 04/02/21 with complaints of double vision. At around 4:30 PM 04/02 she suddenly developed double vision while attempting to get ready to go out. She had her check her eyes, who told her that her pupils were of different size and were not facing the same direction, at which time they decided to come to the emergency room. She denied experiencing weakness, numbness, tingling, headaches, neck pain. Also denied speech impairment or impaired gait. Denied fever, chills, chest pain, SOB. She denies history of CAD, LA, prior Stroke or TIAs, diabetes or hyperlipidemia. DIAGNOSTICS EKG reveals sinus rhythm, heart rate 74, PACs, no significant ST-T wave abnormalities. MRI brain revealed cerebral vascular infarcts, age related atrophy and probably chronic small vessel ischemia CT of the head is reported as cerebral atrophy. No acute intracranial abnormality. CTA of the head and neck was reported as negative CT angiography of the neck while the patient has minimal aneurysm of the tip of the basilar artery in the body of the report it measures about 4.5 mm. Head MRA was unremarkable. Chest xray no acute cardiopulmonary process. Laboratory reviewed, WBC 8.1, hemoglobin 11.9, stool 5, sodium 139, potassium 4.3, BUN 28, serum creatinine 0.7, triglycerides 42, cholesterol 177, LDL 82, HDL 85 Current home medications include atenolol 25 mg daily, Synthroid, vitamin B12, vitamin D 3, Zyrtec REVIEW OF SYSTEMS At the time of my exam: CONSTITUTIONAL: Denies fever or chills. CARDIOVASCULAR: Denies chest pain, shortness of breath, orthopnea, PND or palpitations. RESPIRATORY: Denies cough. GASTROINTESTINAL: Denies abdominal pain, diarrhea, constipation, nausea or vomiting. MUSCULOSKELETAL: Denies myalgias. NEUROLOGIC: Denies numbness, tingling, headacbe or weakness. ENDOCRINE: Denies fatigue, weight change, polydipsia or polyurina. GENITOURINARY: Denies burning, hematuria or urgency with micturation. HEMATOLOGIC: Denies history of anemia or bleeding. PHYSICAL EXAMINATION Blood pressure 122/73, heart 69, afebrile, saturations greater than 92% on room air CONSTITUTIONAL: No apparent distress. HEENT: Head is normocephalic. Pupils are equal, round. Sclerae anicteric. Mucous membranes of the mouth are moist. No JVD. No carotid bruit. CHEST EXAMINATION: Lungs are clear to auscultation. No chest wall tenderness is noted on palpation or with deep breathing. HEART EXAMINATION: Regular rate and rhythm. S1, S2 heard. No murmurs, gallops or rub. ABDOMEN: Soft, nontender. Positive bowel sounds. EXTREMITIES: 2+ peripheral pulses, no lower extremity edema and no calf tenderness. NEUROLOGIC EXAMINATION: Patient is awake, alert and oriented x3. ASSESSMENT Diplopia CVA seen on MRI Brain History of hypothyroidism PLAN Plan for BC today with Dr. Rios I have discussed the risks, benefits and alternative therapies for the above- mentioned procedure and for both sedation/analgesia, if indicated, as they pertain to this patient. The patient has indicated understanding and acceptance of the risks and procedures discussed. Questions have been answered appropriately and she is agreeable to move forward with the above-stated procedure. Nurse Practitioner note has been reviewed, I agree with a documented findings and plan of care. Patient was seen and examined. Past Medical History Past Medical History: Cancer, Deep Vein Thrombosis (DVT), GERD/Reflux, Supraventricular Tachycardia (SVT), Thyroid Disorder, Vascular Disorder Additional Past Medical History / Comment(s): Hypothyroid, 2015 vertigo, uterine cancer with surgery, skin cancer on neck treated with radiation, DVT R leg 30 plus years ago after travelling, occasional cervical and back pain/scoliosis, varicosities, seasonal allergies. History of Any Multi-Drug Resistant Organisms: None Reported Past Surgical History: Tonsillectomy Additional Past Surgical History / Comment(s): Uterine conization, artery or vein tied off d/t DVT. Past Anesthesia/Blood Transfusion Reactions: No Reported Reaction, Motion Sickness Past Psychological History: No Psychological Hx Reported Smoking Status: Never smoker Past Alcohol Use History: None Reported Past Drug Use History: None Reported - Past Family History Father Family Medical History: Cancer Additional Family Medical History / Comment(s): Father had lung cancer. He was a smoker. Mother Family Medical History: Musculoskeletal Disorder, Neurologic Disorder Additional Family Medical History / Comment(s): Mother had parkinson's Medications and Allergies Home Medications Medication Instructions Recorded Confirmed Type Cetirizine HCl [Zyrtec] 10 mg PO HS 04/02/21 04/02/21 History Cholecalciferol [Vitamin D3 (25 25 mcg PO DAILY 04/02/21 04/02/21 History Mcg = 1000 Iu)] Cyanocobalamin (Vitamin B-12) 1,000 mcg PO HS 04/02/21 04/02/21 History [Vitamin B-12] Fluticasone Nasal [place] [Flonase 1 spray EA NOSTRIL HS 04/02/21 04/02/21 History Nasal [place]] Levothyroxine Sodium [Synthroid] 100 mcg PO DAILY 04/02/21 04/02/21 History [place] 3-6-7 1 cap PO HS 04/02/21 04/02/21 History Ubidecarenone [Co Q-10] 100 mg PO HS 04/02/21 04/02/21 History Zinc/Vitamin D 1 tab PO HS 04/02/21 04/02/21 History atenoloL [Tenormin] 25 mg PO DAILY 04/02/21 04/02/21 History Allergies Allergy/AdvReac Type Severity Reaction Status Date / Time No Known Allergies Allergy Unverified 04/02/21 20:39 Physical Exam Vitals: Vital Signs Temp Pulse Pulse Resp BP BP Pulse Ox 04/03/21 11:53 73 16 137/74 97 04/03/21 07:55 98.6 F 77 16 121/87 98 04/03/21 06:04 82 16 127/87 95 04/03/21 01:00 58 L 16 110/68 93 L 04/02/21 22:15 79 16 133/81 98 04/02/21 19:40 98.7 F 80 16 127/75 99 Intake and Output 04/02/21 04/03/21 04/03/21 22:59 06:59 14:59 Intake Total 250 Balance 250 Intake: Oral 250 Other: Weight 57.606 kg 57.606 kg Results 04/03/21 05:43 04/03/21 05:43 Cardiac Enzymes 04/02/21 04/02/21 Range/Units 19:15 19:15 AST 23 (14-36) U/L Troponin I <0.012 (0.000-0.034) ng/mL Coagulation 04/02/21 Range/Units 19:15 PT 10.1 (9.0-12.0) sec APTT 22.0 (22.0-30.0) sec Lipids 04/03/21 Range/Units 05:43 Triglycerides 42.60 (0.00-149.00) mg/dL Cholesterol 177.00 (0.00-200.00) mg/dL HDL Cholesterol 85.70 H (40.00-60.00) mg/dL Cholesterol/HDL Ratio 2.07 Ratio CBC 04/02/21 04/03/21 Range/Units 19:15 05:43 WBC 10.8 H 8.1 (3.8-10.6) k/uL RBC 4.37 3.91 (3.80-5.40) m/uL Hgb 13.3 11.9 (11.4-16.0) gm/dL Hct 41.1 36.0 (34.0-46.0) % Plt Count 235 205 (150-450) k/uL Comprehensive Metabolic Panel 04/02/21 04/03/21 Range/Units 19:15 05:43 Sodium 140 139 (137-145) mmol/L Potassium 4.1 4.3 (3.5-5.1) mmol/L Chloride 106 110 H (98-107) mmol/L Carbon Dioxide 23 26 (22-30) mmol/L BUN 33 H 28 H (7-17) mg/dL Creatinine 0.67 0.71 (0.52-1.04) mg/dL Glucose 100 H 86 (74-99) mg/dL Calcium 9.4 9.1 (8.4-10.2) mg/dL AST 23 (14-36) U/L ALT 13 (4-34) U/L Alkaline Phosphatase 55 (38-126) U/L Total Protein 7.0 (6.3-8.2) g/dL Albumin 4.2 (3.5-5.0) g/dL Current Medications Generic Name Dose Route Start Last Admin Trade Name Freq PRN Reason Stop Dose Admin Acetaminophen 650 mg 04/02/21 21:25 Acetaminophen Tab 325 Mg Tab PO Q6HR PRN Pain Artificial Tears 1 drops 04/03/21 13:14 Artificial Tears-Hypromellose Drops 15 Ml Btl BOTH EYES QID PRN Dry Eye(s) Aspirin 81 mg 04/03/21 09:00 12/22/21 11:55 Aspirin 81 Mg PO 81 mg DAILY SHIRA Administration Atorvastatin Calcium 40 mg 04/04/21 21:00 Atorvastatin 40 Mg Tab PO HS SHIRA Fluticasone Propionate 1 spray 04/03/21 21:00 Fluticasone 50mcg/[place] Nasal 16gm EA NOSTRIL HS SHIRA Heparin Sodium (Porcine) 5,000 unit 04/03/21 00:00 04/03/21 11:55 Heparin Sodium,Porcine/Pf 5,000 Unit/0.5 Ml Syringe SQ 5,000 unit Q8HR SHIRA Administration Sodium Chloride 1,000 mls @ 75 mls/hr 04/02/21 21:15 04/03/21 11:12 Saline 0.9% IV Not Given .[id number] SHIRA Thyroxine 100mcg 1 each 04/03/21 09:30 04/03/21 09:46 Tablet PO 1 each DAILY@0630 SHIRA Administration Tenormin *Selvin* 25 Mg 25 mg 04/03/21 09:30 04/03/21 09:46 Tab PO 25 mg DAILY SHIRA Administration Phenylephrine HCl 1 drops 04/03/21 13:15 04/03/21 14:02 Phenylephrine 2.5% Ophth Drp 2ml BOTH EYES Not Given DIRECTED SHIRA Intake and Output 04/02/21 04/03/21 04/03/21 22:59 06:59 14:59 Intake Total 250 Balance 250 Intake: Oral 250 Other: Weight 57.606 kg 57.606 kg Patient Weight 04/04/21 06:59 Weight 57.606 kg 04/03/21 05:43 04/03/21 05:43
[2021-04-04] MEDS ORDERED: fentaNYL (PF) 50 MCG/ML 5 ML AMP IV ONE (10:49)
[2021-04-04] MEDS ORDERED: MIDAZOLAM 2 MG/2 ML VIAL IV ONE ×2 (10:49→10:53)
[2021-04-04] MEDS: HEPARIN SODIUM,PORCINE/PF 5,000 UNIT/0.5 ML SYRINGE SQ SCH ×3 (10:51→23:00)
--- NOTE | 2021-04-04 10:55 | P.PN ---
Subjective Progress Note Date: 04/04/21 The patient is seen at bedside and feels about the same. She denies of any focal weakness, numbness, dysphagia. She continues to have diplopia of both eyes and when covers either eye. Objective - Vital Signs Vital signs: Vital Signs Temp 98.2 F 04/04/21 07:47 Pulse 71 04/04/21 07:47 Resp 20 04/04/21 07:47 BP 133/73 04/04/21 07:47 Pulse Ox 98 04/04/21 07:47 Intake & Output 04/03/21 04/04/21 04/04/21 18:59 06:59 18:59 Intake Total 368 10 Balance 368 10 Weight 57.606 kg Intake: IV 10 0.9 10 Oral 368 Other: Voiding Method Toilet # Voids 1 - Exam GENERAL: The patient is lying in bed and is not in acute distress. NEUROLOGICAL: Higher mental function: The patient is awake, alert, oriented to self, place and time. Patient is following commands. No aphasia and no neglect. Cranial nerves: The pupils are round, equal (3mm) bilaterally and reactive to light and accommodation. Visual escobedo are full to confrontation throughout. She has diplopia when both eyes are open but resolves when either eye is close. Extraocular movement: Seems some restriction in moving eyes upwards bilaterally and partial SIVA on left. Patient has rotatory nystagmus looking to the left and looking upwards. Facial sensation is normal to touch throughout. The facial strength is normal throughout. Hearing is normal bilaterally to hand rub. Tongue is midline and moved [id number] without any difficulty. No dysarthria is noted. Shoulder shrug is normal bilaterally. Motor: The strength is 5 over 5 throughout. Normal tone and bulk. Cerebellum: Normal finger to nose heel to davis bilaterally. Sensation: Sensation is normal to touch throughout. Reflexes (right/left): 2+ throughout. Plantars are downgoing bilaterally. WORK-UP: AST of 23 and ALT of 13. Coronavirus PCR is undetected HbA1c: 5.2 Lipid Panel: TG 42, Cholestrol 177, LDL [address] of the head is reported as cerebral atrophy. No acute intracranial abnormality. Personally reviewed the CT of the head and there is no acute or subacute ischemia and there is no intraparenchymal hemorrhage. The patient does have bilateral frontal atrophy that is mild to moderate at in significance. Patient had CTA of the head and neck was reported as negative CT angiography of the neck while the patient has minimal aneurysm of the tip of the basilar artery in the body of the report it measures about 4.5 mm. MRI the brain is reported as finding consistent with cerebral vascular infarcts. In the body of the report it is reported in the left occipital cortex as well as the posterior aspect of the red nucleus of the on the left possibly the medial longitudinal fasciculus and and finger Katie nucleus possible involvement of the oculomotor nucleus. While MRA of the head is reported as unremarkable MRA of [place] 2D echo: Reported as left ventricle size wall thickness and systolic functions are normal with ejection fraction greater than 55%. Left atrial size is normal. - Labs CBC & Chem 7: 04/03/21 05:43 04/03/21 05:43 Labs: Abnormal Lab Results - Last 24 Hours (Table) 04/03/21 Range/Units 05:43 HDL Cholesterol 85.70 H (40.00-60.00) mg/dL Assessment and Plan Assessment: Acute ischemic stroke (new onset diplopia on both eyes, upward vertical movement defect and partial left SIVA on examination). MRI showed stroke on left midbrain and left occipital. No IV tpa since outside window (and very low NIH stroke). Etiology appears embolic. 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 Continue dual antiplatelets for 21 days and after 21 days to remain only on ASA 81mg daily. Decrease Lipitor to 20mg qhs for secondary stroke prophylaxis. Primary team consulted cardiology for BC. I ordered Event monitor for 30 days and for patient to follow-up with cardiology to rule out any a-fib or flutter. PT, OT and FARM CROPS TEACHER are consulted. Ophthalmology team is on board. Continue neuro checks Continue Cardiac monitoring Will defer the rest of medical management to the primary team. Regarding patient's ?basilar aneurysm seen on CTA. Patient is to follow-up with Dr. Larios (interventional neurologist at [phone]) as outpatient. Upon discharge, the patient to follow-up with a neurologist within 1-2 weeks. The plan is discussed with the patient and her who is at bedside. I also discussed case with primary and Ophthalmology teams. Mansoor Powers MD Neuro-Hospitalist Time with Patient: Less than 30
[2021-04-04] MEDS: THYROXINE PO SCH (13:07)
[2021-04-04] MEDS: ASPIRIN 81 MG PO SCH (13:07)
[2021-04-04] MEDS: CLOPIDOGREL 75 MG TAB PO SCH (13:07)
[2021-04-04] MEDS: PHENYLEPHRINE 2.5% OPHTH DRP 2ML BOTH EYES SCH (13:09)
--- NOTE | 2021-04-04 14:10 | P.TEE ---
Indications for Procedure(s): CVA Date of Procedure: 04/04/21 Preoperative Diagnosis: CVA, rule out cardiac source of emboli Postoperative Diagnosis: Normal BC Procedure(s) Performed: BC Description of Procedure(s): INDICATION: This is a 70-year-old female who was admitted to the hospital with the symptoms of diplopia and a diagnosis of CVA. BC examination is requested to rule out Cardec source of emboli CONSENT: Informed verbal consent is obtained from the patient PROCEDURE: Patient was brought to the lab in a fasting state. She was prepped and draped in the usual fashion. She was given 2.5 mg of Versed and 25 mics of fentanyl. The throat was sprayed with the hurricane. A lubricated Omni probe was introduced in the oropharynx and was advanced into the esophagus. Multiple views were obtained. Color, pulsed and continuous Doppler studies were done. Saline contrast bubble injection was performed. Patient tolerated the procedure well. No immediate competitions FINDINGS: The aortic valve is tricuspid and seemed to be functioning normally with trace regurgitation. Aortic root appeared to be normal. There is no plaque in the aorta. The left atrial appendage appeared free of any clot. The atrial sizes appear to be normal. The mitral and tricuspid valve appeared to be normal. The interatrial septum appeared to be intact without any spontaneous shunt. Saline contrast bubble injection did not reveal any evidence of crossing of the bubbles across the septum. Left trigger function appeared within normal IMPRESSION: . Normal valvular function, except trace aortic regurgitation. No clot in left atrial appendage. No PFO. Normal LV function. Aorta appeared to be free of any plaque PLAN: Continue to look for other causes of CVA. Continue current medical therapy
[2021-04-04] MEDS: ATENOLOL 25 MG PO SCH (17:04)
[2021-04-04] MEDS: FLUTICASONE 50MCG/SPRAY NASAL 16GM EA NOSTRIL SCH (19:53)
[2021-04-04] MEDS ORDERED: ATORVASTATIN 40 MG TAB PO SCH (21:00)
[2021-04-04] MEDS ORDERED: ATORVASTATIN 20 MG TAB PO SCH (21:00)
[2021-04-05] MEDS: THYROXINE PO SCH (06:43)
[2021-04-05 06:51] LABS: Basophils # (A) 0.1 k/uL (0-0.2); Basophils % (A) 1 %; Eosinophils # (A) 0.2 k/uL (0-0.7); Eosinophils % (A) 3 %; HCT 39.2 % (34.0-46.0); HGB 12.7 gm/dL (11.4-16.0); Lymphocytes # (A) 2.6 k/uL (1.0-4.8); Lymphocytes % (A) 35 %; MCH 29.8 pg (25.0-35.0); MCHC 32.5 g/dL (31.0-37.0); MCV 91.7 fL (80.0-100.0); Mean Platelet Volume 7.5; Monocytes # (A) 0.5 k/uL (0-1.0); Monocytes % (A) 7 %; Neutrophils # (A) 3.9 k/uL (1.3-7.7); Neutrophils % (A) 53 %; Platelet Count 223 k/uL (150-450); RBC 4.28 m/uL (3.80-5.40); RDW 12.9 % (11.5-15.5); WBC 7.5 k/uL (3.8-10.6)
[2021-04-05 07:01] LABS: African American GFR (CKD) >90 (>60 ml/min/1.73 sqM); Anion Gap 5 mmol/L; Blood Urea Nitrogen 18 mg/dL (7-17); Calcium 9.2 mg/dL (8.4-10.2); Carbon Dioxide 26 mmol/L (22-30); Chloride 108 mmol/L (98-107); Glucose 90 mg/dL (74-99); Magnesium 1.9 mg/dL (1.6-2.3); Non-African American GFR(CKD) 89 (>60 ml/min/1.73 sqM); Potassium 4.6 mmol/L (3.5-5.1); Sodium 139 mmol/L (137-145)
[2021-04-05] MEDS: HEPARIN SODIUM,PORCINE/PF 5,000 UNIT/0.5 ML SYRINGE SQ SCH (08:05)
[2021-04-05] MEDS: ASPIRIN 81 MG PO SCH (08:05)
[2021-04-05] MEDS: CLOPIDOGREL 75 MG TAB PO SCH (08:05)
[2021-04-05] MEDS: ATENOLOL 25 MG PO SCH (08:07)
--- NOTE | 2021-04-05 11:39 | P.DS ---
Providers Date of admission: 04/02/21 21:10 Expected date of discharge: 04/05/21 Attending physician: Shnaia Hernandez MD Consults: 04/02/21 21:13 Consult Physician Routine Consulting Provider: Mansoor Powers Consult Reason/Comments: CVA,third nerve palsy Do you want consulting provider notified?: Yes 04/03/21 11:47 Consult Physician Routine Consulting Provider: Jeremy Macdonald Consult Reason/Comments: double vision Do you want consulting provider notified?: Yes 04/03/21 13:28 Consult Physician Routine Consulting Provider: Rafa Amaya Consult Reason/Comments: BC for multiple CVAs Do you want consulting provider notified?: Yes Primary care physician: [facility] Course: Sudden onset diplopia with anisocoria Acute Stroke -Patient admitted for stroke work up. Neurology and Ophthalmology consulted. Echo did not show PFO, BC did not show thrombus or PFO; EF was good with no WMA, no valvular pathology. MRI of the brain did show some evidence of strokes in the mid brain and occiptal lobe. Telemetry did not show A Fib. Pt discharged on event monitor. Treated with ASA, Plavix, Statin. Discharged on the same with 21 day supply of plavix. Pt did have an aneurysm noted on CTA of the H/N, but this was likely incidental and unrelated to patient's strokes. Pt will f/u with Dr. Larios, and with Ophthalmology, as well as PCP. Chronic conditions: Hypothyroidism -Continued with home meds, no changes except as above. I spent 36 minutes coordinating this discharge. Assessment: Gen: awake, alert HEENT: normocephalic, atraumatic, good hearing acuity, moist mucous membranes Resp: good air exchange, breathing comfortably with no accessory muscle use CVS: good distal perfusion x 4, GI: soft, NTTP, ND : no SPT, no CVAT, barriga catheter not present MSK: no pitting edema, no clubbing Neuro: 5 out of 5 motor strength, no sensory deficits Psych: cooperative, euthymic mood Patient Condition at Discharge: Good Plan - Discharge Summary Discharge Rx Participant: No New Discharge Prescriptions: New Artificial Tears-Hypromellose [Artificial Tear Drops] 1 drops BOTH EYES QID PRN #10 ml PRN Reason: Dry Eye(S) Aspirin 81 mg PO DAILY #30 tab Atorvastatin [Lipitor] 20 mg PO HS #30 tab Clopidogrel [Plavix] 75 mg PO DAILY #21 tab Continue [place] 3-6-7 1 cap PO HS Cholecalciferol [Vitamin D3 (25 Mcg = 1000 Iu)] 25 mcg PO DAILY Zinc/Vitamin D 1 tab PO HS Cyanocobalamin (Vitamin B-12) [Vitamin B-12] 1,000 mcg PO HS Ubidecarenone [Co Q-10] 100 mg PO HS Cetirizine HCl [Zyrtec] 10 mg PO HS Levothyroxine Sodium [Synthroid] 100 mcg PO DAILY Fluticasone Nasal [place] [Flonase Nasal [place]] 1 spray EA NOSTRIL HS Changed atenoloL [Tenormin] 12.5 mg PO DAILY #15 Discharge Medication List Cetirizine HCl [Zyrtec] 10 mg PO HS 04/02/21 [History] Cholecalciferol [Vitamin D3 (25 Mcg = 1000 Iu)] 25 mcg PO DAILY 04/02/21 [History] Cyanocobalamin (Vitamin B-12) [Vitamin B-12] 1,000 mcg PO HS 04/02/21 [History] Fluticasone Nasal [place] [Flonase Nasal [place]] 1 spray EA NOSTRIL HS 04/02/21 [History] Levothyroxine Sodium [Synthroid] 100 mcg PO DAILY 04/02/21 [History] [place] 3-6-7 1 cap PO HS 04/02/21 [History] Ubidecarenone [Co Q-10] 100 mg PO HS 04/02/21 [History] Zinc/Vitamin D 1 tab PO HS 04/02/21 [History] Artificial Tears-Hypromellose [Artificial Tear Drops] 1 drops BOTH EYES QID PRN #10 ml 04/05/21 [Rx] Aspirin 81 mg PO DAILY #30 tab 04/05/21 [Rx] Atorvastatin [Lipitor] 20 mg PO HS #30 tab 04/05/21 [Rx] Clopidogrel [Plavix] 75 mg PO DAILY #21 tab 04/05/21 [Rx] atenoloL [Tenormin] 12.5 mg PO DAILY #15 04/05/21 [Rx] Follow up Appointment(s)/Referral(s): Dr Ric [Other] - 1 Week (Interventional Neurologist Please call to schedule appointment ) [facility] [Provider Group] - 1 Week (Office is closed. Please call to schedule appointment) Jeremy Macdonald MD [STAFF PHYSICIAN] - 1 Week (Office is closed. Please call to schedule follow up appointment) Nonstaff,Physician [REFERRING] - 1-2 days (Please call and schedule appointment with your PCP) Mansoor Powers MD [STAFF PHYSICIAN] - 1 Week (Please call to schedule appointment with information given to you) Patient Instructions/Handouts: Ischemic Stroke (DC), Diplopia (DC) Discharge Disposition: HOME WITH HOME HEALTH SERVICES
--- NOTE | 2021-04-05 12:14 | P.PN ---
Subjective Progress Note Date: 04/05/21 The patient is seen at bedside and feels about the same from neurological perspective. Objective - Vital Signs Vital signs: Vital Signs Temp 98.1 F 04/05/21 07:59 Pulse 80 04/05/21 07:59 Resp 16 04/05/21 07:59 BP 128/80 04/05/21 07:59 Pulse Ox 97 04/05/21 07:59 Intake & Output 04/04/21 04/05/21 04/05/21 18:59 06:59 18:59 Intake Total 580 250 Balance 580 250 Intake: IV 100 Oral 480 250 Other: Voiding Method Toilet # Voids 2 - Exam GENERAL: The patient is lying in bed and is not in acute distress. NEUROLOGICAL: Higher mental function: The patient is awake, alert, oriented to self, place and time. Patient is following commands. No aphasia and no neglect. Cranial nerves: The pupils are round, equal (3mm) bilaterally and reactive to light and accommodation. Visual escobedo are full to confrontation throughout. She has diplopia when both eyes are open but resolves when either eye is close. Extraocular movement: Seems some restriction in moving eyes upwards bilaterally and partial SIVA on left. Patient has rotatory nystagmus looking to the left and looking upwards. Facial sensation is normal to touch throughout. The facial strength is normal throughout. Hearing is normal bilaterally to hand rub. Tongue is midline and moved [id number] without any difficulty. No dysarthria is noted. Shoulder shrug is normal bilaterally. Motor: The strength is 5 over 5 throughout. Normal tone and bulk. Cerebellum: Normal finger to nose heel to davis bilaterally. Sensation: Sensation is normal to touch throughout. Reflexes (right/left): 2+ throughout. Plantars are downgoing bilaterally. WORK-UP: AST of 23 and ALT of 13. Coronavirus PCR is undetected HbA1c: 5.2 Lipid Panel: TG 42, Cholestrol 177, LDL [address] of the head is reported as cerebral atrophy. No acute intracranial abnormality. Personally reviewed the CT of the head and there is no acute or subacute ischemia and there is no intraparenchymal hemorrhage. The patient does have bilateral frontal atrophy that is mild to moderate at in significance. Patient had CTA of the head and neck was reported as negative CT angiography of the neck while the patient has minimal aneurysm of the tip of the basilar artery in the body of the report it measures about 4.5 mm. MRI the brain is reported as finding consistent with cerebral vascular infarcts. In the body of the report it is reported in the left occipital cortex as well as the posterior aspect of the red nucleus of the on the left possibly the medial longitudinal fasciculus and and finger Katie nucleus possible involvement of the oculomotor nucleus. While MRA of the head is reported as unremarkable MRA of [place] 2D echo: Reported as left ventricle size wall thickness and systolic functions are normal with ejection fraction greater than 55%. Left atrial size is normal. BC: Normal valvular function except for trace aortic regurgitation. No PFO. Aorta appears to be free of any plaque. No clots in the left atrial appendage. - Labs CBC & Chem 7: 04/05/21 05:52 04/05/21 05:52 Labs: Abnormal Lab Results - Last 24 Hours (Table) 04/05/21 Range/Units 05:52 Chloride 108 H (98-107) mmol/L BUN 18 H (7-17) mg/dL Assessment and Plan Assessment: Acute ischemic stroke (new onset diplopia on both eyes, upward vertical movement defect and partial left SIVA on examination). MRI showed stroke on left midbrain and left occipital. No IV tpa since outside window (and very low NIH stroke). Etiology appears embolic. 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 Continue dual antiplatelets for 21 days and after 21 days to remain only on ASA 81mg daily. Continue Lipitor 20mg qhs for secondary stroke prophylaxis. Patient has Event monitor on currently and to be on it for 30 days. Follow-up with cardiology to rule out any a-fib or flutter. PT, OT and RN BEHAVIORAL HEALTH are consulted. Ophthalmology team is on board. Continue neuro checks Continue Cardiac monitoring. No a-fib or flutter on monitor so far. Will defer the rest of medical management to the primary team. Regarding patient's ?basilar aneurysm seen on CTA. Patient is to follow-up with Dr. Larios (interventional neurologist at [phone]) as outpatient. Upon discharge, the patient to follow-up with a neurologist within 1-2 weeks. The plan is discussed with the patient and her who is at bedside. I also discussed case with primary team. Patient is clear from neurological perspective. Mansoor Powers MD Neuro-Hospitalist Time with Patient: Less than 30
[2021-04-05] MEDS: SODIUM CHLORIDE 0.9% 1,000 ML IV SCH (12:20)
[2021-04-05 13:02] LABS: Glucose,Whole Blood 110 mg/dL (75-99)
[2021-04-05 13:11] VITALS: BP 148/83; PULSE 81; RESP 18; TEMP 97.4
[2021-04-05] MEDS ORDERED: ONDANSETRON ODT 4 MG TAB PO STA (13:13)
[2021-04-05] MEDS: PHENYLEPHRINE 2.5% OPHTH DRP 2ML BOTH EYES SCH (13:13)
== END 2021-04-05 14:59 | disposition home health service (06) | DRG 66 ==
LOC: EC 18:09 → 3SCARD 21:10
PROVIDERS: ADMIT Internal Medicine; ATTEND Internal Medicine
DX: I63.9 Cerebral infarction, unspecified (principal); Z20.822 Contact with and (suspected) exposure to COVID-19; E03.9 Hypothyroidism, unspecified; G31.9 Degenerative disease of nervous system, unspecified; H49.02 Third [oculomotor] nerve palsy, left eye; H50.10 Unspecified exotropia; H55.09 Other forms of nystagmus; H57.02 Anisocoria; I67.1 Cerebral aneurysm, nonruptured; I73.9 Peripheral vascular disease, unspecified; M32.9 Systemic lupus erythematosus, unspecified; M41.9 Scoliosis, unspecified; Z79.02 Long term (current) use of antithrombotics/antiplatelets; Z79.890 Hormone replacement therapy; Z79.899 Other long term (current) drug therapy; Z80.1 Family history of malignant neoplasm of trachea, bronchus and lung; Z82.0 Family history of epilepsy and other diseases of the nervous system; Z85.42 Personal history of malignant neoplasm of other parts of uterus; Z85.828 Personal history of other malignant neoplasm of skin; Z86.718 Personal history of other venous thrombosis and embolism; Z86.73 Personal history of transient ischemic attack (TIA), and cerebral infarction without residual deficits; Z92.3 Personal history of irradiation; K21.9 Gastro-esophageal reflux disease without esophagitis; M54.9 Dorsalgia, unspecified
CPT/HCPCS: 36415; 70450; 70496; 70498; 70544; 70551; 71046; 80048; 80053; 80061; 81003; 83036; 83605; 83721; 83735; 84484; 85025; 85027; 85610; 85730; 87635; 93005; 93270; 93306; 93312; 93320; 93325; 96360; 99285

== ENCOUNTER 2021-06-06 19:25 | Observation (INO) | payer MEDICARE ==
[2021-06-06] MEDS ORDERED: SODIUM CHLORIDE 0.9% 1,000 ML IV STA (20:03)
--- NOTE | 2021-06-06 20:08 | ED ---
General Adult HPI - General Chief complaint: Weakness Stated complaint: Dizziness Time Seen by Provider: 06/06/21 19:38 Source: patient, RN notes reviewed Mode of arrival: EMS - History of Present Illness Initial comments: 71-year-old female presents to the emergency department via EMS accompanied by her spouse for evaluation of a transient episode of weakness around 5:30 this evening. Patient states she was face timing with her daughter when she felt the room began to spin and experienced generalized weakness. Patient's daughter told her her face was flushed at that time. Patient did not have any speech or cognitive deficits. Patient states she became concerned because the symptoms were very similar to previous episodes of TIAs that she experienced. States she had a tele-visit with her neurologist earlier this week for routine follow-up. Also was seen by the library services assistant on Thursday for follow-up on loop recorder placement. Patient states her symptoms have mostly resolved at this time. Denies fever, chills, confusion, headache, dizziness, chest pain, difficulty breathing, abdominal pain, nausea, vomiting, diarrhea, dysuria. - Related Data Home Medications Medication Instructions Recorded Confirmed Cetirizine HCl [Zyrtec] 10 mg PO HS 04/02/21 06/06/21 Cyanocobalamin (Vitamin B-12) 1,000 mcg PO HS 04/02/21 06/06/21 [Vitamin B-12] Fluticasone Nasal [place] [Flonase 1 spray EA NOSTRIL HS 04/02/21 06/06/21 Nasal [place]] Levothyroxine Sodium [Synthroid] 100 mcg PO DAILY 04/02/21 06/06/21 [place] 3-6-7 1 cap PO HS 04/02/21 06/06/21 Ubidecarenone [Co Q-10] 100 mg PO HS 04/02/21 06/06/21 Cholecalciferol [Vitamin D3 (25 25 mcg PO DAILY 05/24/21 06/06/21 Mcg = 1000 Iu)] atenoloL [Tenormin] 25 mg PO DAILY 05/24/21 06/06/21 Atorvastatin [Lipitor] 40 mg PO HS 06/06/21 06/06/21 Previous Rx's Medication Instructions Recorded Aspirin 81 mg PO DAILY #30 tab 04/05/21 Allergies Allergy/AdvReac Type Severity Reaction Status Date / Time Latex, Natural Rubber Allergy Rash/Hives Verified 06/06/21 20:45 Review of Systems ROS Statement: Those systems with pertinent positive or pertinent negative responses have been documented in the HPI. ROS Other: All systems not noted in ROS Statement are negative. Past Medical History Past Medical History: Cancer, CVA/TIA, Deep Vein Thrombosis (DVT), GERD/Reflux, Supraventricular Tachycardia (SVT), Thyroid Disorder, Vascular Disorder Additional Past Medical History / Comment(s): SEE DR MORTENSEN'S H&P. diplopia and balance issues since TIA's. uterine cancer with surgery, skin cancer on neck treated with radiation. neck and back pain/scoliosis History of Any Multi-Drug Resistant Organisms: None Reported Past Surgical History: Tonsillectomy Additional Past Surgical History / Comment(s): Uterine conization, artery or vein tied off d/t DVT. Past Anesthesia/Blood Transfusion Reactions: No Reported Reaction, Motion Sickness Additional Past Anesthesia/Blood Transfusion Reaction / Comment(s): VERTIGO Past Psychological History: No Psychological Hx Reported Smoking Status: Never smoker Past Alcohol Use History: None Reported Past Drug Use History: None Reported - Past Family History Father Family Medical History: Cancer Additional Family Medical History / Comment(s): Father had lung cancer. He was a smoker. Mother Family Medical History: Musculoskeletal Disorder, Neurologic Disorder Additional Family Medical History / Comment(s): Mother had parkinson's General Exam Limitations: no limitations (Well-developed, well-nourished female in no acute distress. Initial temperature 97.5, pulse 73, respirations 18, blood pressure 145/85, pulse ox 98% on room air.) General appearance: alert, in no apparent distress Head exam: Present: atraumatic, normocephalic, normal inspection Eye exam: Present: normal appearance, PERRL, EOMI. Absent: scleral icterus, conjunctival injection, nystagmus, periorbital swelling, periorbital tenderness Pupils: Present: normal accommodation. Absent: unequal ENT exam: Present: normal exam, normal oropharynx, mucous membranes moist Neck exam: Present: normal inspection, full ROM. Absent: tenderness, meningismus, lymphadenopathy Respiratory exam: Present: normal lung sounds bilaterally. Absent: respiratory distress, wheezes, rales, rhonchi, stridor Cardiovascular Exam: Present: regular rate, normal rhythm, normal heart sounds, other (Faint contusion over the left anterior chest wall where loop recorder was placed. Sutures were removed and does have pink healing skin.). Absent: systolic murmur, diastolic murmur, rubs, gallop, clicks GI/Abdominal exam: Present: soft, normal bowel sounds. Absent: distended, tenderness, guarding, rebound, rigid Back exam: Present: normal inspection. Absent: CVA tenderness (R), CVA tenderness (L) Neurological exam: Present: alert, oriented X3, other (NIH 0) Expanded Patient oriented to: Present: person, place, time Speech: Present: fluid speech Cranial nerves: EOM's Intact: Normal, Tongue Deviation: Normal, Nystagmus: Normal Cerebellar function: Finger to Nose: Normal Upper motor neuron: Pronator Drift: Normal Motor strength exam: RUE: 5, LUE: 5, RLE: 5, LLE: 5 Eye Response: (4) open spontaneously Motor Response: (6) obeys commands Verbal Response: (5) oriented Vladislav Total: 15 Psychiatric exam: Present: anxious Skin exam: Present: warm, dry, intact, normal color Course Vital Signs 06/06/21 06/06/21 06/06/21 19:30 21:04 22:14 Temperature 97.5 F L Pulse Rate 73 79 75 Respiratory 18 18 18 Rate Blood Pressure 145/85 149/85 115/86 O2 Sat by Pulse 98 98 95 Oximetry 06/07/21 06/07/21 00:11 03:55 Temperature Pulse Rate 78 72 Respiratory 18 18 Rate Blood Pressure 115/78 90/55 O2 Sat by Pulse 97 95 Oximetry Medical Decision Making - Medical Decision Making 71-year-old female with a recent TIA presents to the emergency department for evaluation after experiencing an episode in which she states the room was spinni ng and she became diffusely weak. Upon evaluation, patient is well-appearing and in no acute distress. She has no focal neurological deficits. She is alert and oriented and able to follow commands appropriately. She is not experiencing any facial droop or unilateral weakness of any extremity. There is no longer experiencing symptoms of dizziness. On previous visit, anisocoria is documented, however pupils are equal today. Patient does appear anxious. She has been seen by her neurologist and library services assistant this week for routine follow- up appointments. CT of the brain was obtained showing no acute process. Chest x-ray was negative. Ultrasound of the right upper quadrant was obtained due to elevated liver enzymes, though it was unremarkable as well. This patient's care was discussed with my attending, . She will be admitted to the hospital for further evaluation and treatment. - Lab Data Result diagrams: 06/06/21 Unknown 06/06/21 Unknown Lab Results 06/06/21 Range/Units 22:13 Urine Color Yellow Urine Appearance Clear (Clear) Urine pH 5.5 (5.0-8.0) Ur Specific [place] 1.014 (1.001-1.035) Urine Protein Negative (Negative) Urine Glucose (UA) Negative (Negative) Urine Ketones Trace H (Negative) Urine Blood Negative (Negative) Urine Nitrite Negative (Negative) Urine Bilirubin Negative (Negative) Urine Urobilinogen <2.0 (<2.0) mg/dL Ur Leukocyte Esterase Trace H (Negative) Urine WBC 2 (0-5) /hpf Ur Squamous Epith Cells <1 (0-4) /hpf Urine Mucus Rare H (None) /hpf - EKG Data EKG shows normal: sinus rhythm Rate: normal EKG Comments: EKG obtained at 1930 and shows sinus rhythm with old septal myocardial infe ction. Ventricular rate 72, IA interval 184, QRS duration 83, QT/QTc 374/399. Interpretation is abnormal ECG. - Radiology Data Radiology results: report reviewed, image reviewed CT of the brain was obtained. Report was reviewed in its entirety. Impression per Dr. Rodas is no acute process. Two-view chest x-ray was obtained. Report was reviewed in its entirety. Impression per is no acute process. Ultrasound of the right upper quadrant was obtained. Report was reviewed in its entirety. Impression per Dr. Leon is 2 x 2.7 cm cyst in the superior right lobe of the liver. No solid liver mass. No dilated ducts. No gallstones. Disposition Clinical Impression: Weakness, Dizzy spells, History of TIA (transient ischemic attack) Disposition: ADMITTED IP TO THIS HOSP Condition: Serious Decision Date: 06/07/21
--- NOTE | 2021-06-06 20:49 | CT ---
EXAMINATION: CT brain wo con DATE AND TIME: 06/06/2021 8:32 PM CLINICAL INDICATION: weakness, dizziness, h/o TIAs TECHNIQUE: Standard departmental protocol.; 1111.4 mGy-cm COMPARISON: 04/02/2021 FINDINGS: The calvarium is intact. There is no intracranial hemorrhage. There is no intracranial mass or mass effect. No definite new intra-axial or extra-axial attenuation defect. The paranasal sinuses, middle ear cavities, and mastoid sinus air cells are clear. The orbits are unremarkable. IMPRESSION: NO ACUTE PROCESS.
--- NOTE | 2021-06-06 20:53 | XR ---
EXAMINATION: XR chest 2V DATE AND TIME: 06/06/2021 8:19 PM CLINICAL INDICATION: PHH; Weakness TECHNIQUE: Departmental protocol COMPARISON: 04/02/2021 FINDINGS: The lungs are clear. The pleural spaces are negative. The cardiac silhouette is not enlarged. The remainder of the mediastinal silhouette is unremarkable. The skeletal structures and soft tissues are negative for acute findings. IMPRESSION: NO ACUTE PROCESS.
[2021-06-06 21:01] LABS: ALT 51 U/L (4-34); AST 55 U/L (14-36); African American GFR (CKD) >90 (>60 ml/min/1.73 sqM); Alkaline Phosphatase 148 U/L (38-126); Anion Gap 10 mmol/L; Blood Urea Nitrogen 26 mg/dL (7-17); Calcium 9.3 mg/dL (8.4-10.2); Carbon Dioxide 24 mmol/L (22-30); Chloride 106 mmol/L (98-107); Glucose 95 mg/dL (74-99); Magnesium 2.2 mg/dL (1.6-2.3); Non-African American GFR(CKD) >90 (>60 ml/min/1.73 sqM); Potassium 4.4 mmol/L (3.5-5.1); Sodium 140 mmol/L (137-145); Total Bilirubin 0.5 mg/dL (0.2-1.3); Total Protein 7.1 g/dL (6.3-8.2)
[2021-06-06 21:08] LABS: INR 0.9 (<1.2); Prothrombin Time 10.3 sec (9.0-12.0)
[2021-06-06 21:17] LABS: Basophils # (A) 0.1 k/uL (0-0.2); Basophils % (A) 1 %; Eosinophils % (A) 11 %; HGB 12.5 gm/dL (11.4-16.0); Lymphocytes # (A) 1.2 k/uL (1.0-4.8); Lymphocytes % (A) 14 %; MCH 31.5 pg (25.0-35.0); MCHC 33.8 g/dL (31.0-37.0); MCV 93.1 fL (80.0-100.0); Mean Platelet Volume 8.5; Monocytes # (A) 0.5 k/uL (0-1.0); Monocytes % (A) 6 %; Neutrophils # (A) 5.7 k/uL (1.3-7.7); Neutrophils % (A) 67 %; Platelet Count 231 k/uL (150-450); RBC 3.97 m/uL (3.80-5.40); RDW 13.4 % (11.5-15.5); WBC 8.6 k/uL (3.8-10.6)
[2021-06-06 21:21] LABS: Partial Thromboplastin Time 19.4 sec (22.0-30.0)
[2021-06-06 22:40] LABS: Appearance,Urine Clear (Clear); Bilirubin,Urine Negative (Negative); Blood,Urine Negative (Negative); Color,Urine Yellow; Glucose,Urine (UA) Negative (Negative); Ketones,Urine Trace (Negative); Leukocyte Esterase,Urine Trace (Negative); Mucus,Urine Rare /hpf; Nitrite,Urine Negative (Negative); PH, Urine 5.5 (5.0-8.0); Protein,Urine Negative (Negative); Specific Gravity,Urine 1.014 (1.001-1.035); Squamous Epithelial Cell,Urine <1 /hpf (0-4); Urobilinogen,Urine <2.0 mg/dL (<2.0); WBC,Urine 2 /hpf (0-5)
--- NOTE | 2021-06-06 23:46 | US ---
EXAMINATION TYPE: US abdomen limited DATE OF EXAM: 06/06/2021 COMPARISON: NONE CLINICAL HISTORY: elevated liver enzymes. EXAM MEASUREMENTS: Liver Length: 14.7 cm Gallbladder Wall: 0.17 cm CBD: 0.80 cm Right Kidney: 10.2 x 4.9 x 5.1 cm Pancreas: Obscured by bowel gas Liver: Anechoic foci noted (1): 2.7 x 2.0 x 2.1 cm. (2): 1.5 x 1.0 x 1.0 cm Gallbladder: 11.9 cm in length Evidence for sonographic Stafford's sign: No CBD: Limited visualization due to overlying bowel gas Right Kidney: No hydronephrosis or masses seen IMPRESSION: There is a 2 x 2 0.7 cm cyst in the superior right lobe of the liver. No solid liver mass. No dilated ducts. No gallstones.
[2021-06-07] MEDS ORDERED: NALOXONE 0.4 MG/ML 1 ML VIAL IV PRN (02:20)
[2021-06-07] MEDS ORDERED: IBUPROFEN 400 MG TAB PO PRN (02:20)
[2021-06-07] MEDS ORDERED: traMADol 50 MG TAB PO PRN (02:20)
[2021-06-07] MEDS ORDERED: ONDANSETRON 4 MG/2 ML VIAL IVP PRN (02:20)
[2021-06-07] MEDS ORDERED: LEVOTHYROXINE 100 MCG TAB PO SCH (06:30)
[2021-06-07] MEDS: ASPIRIN 81 MG PO SCH (08:30)
[2021-06-07] MEDS: FAMOTIDINE 20 MG TAB PO SCH ×2 (08:30→20:14)
[2021-06-07] MEDS: CHOLECALCIFEROL 25 MCG (1000 IU) TABLET PO SCH (08:30)
[2021-06-07] MEDS ORDERED: atenoloL 25 MG TAB PO SCH (09:00)
--- NOTE | 2021-06-07 13:09 | P.CRDCN ---
History of Present Illness History of present illness: ISTORY OF PRESENTING ILLNESS This is a pleasant 70-year-old female past medical history significant for recent acute ischemic stroke in March 2021 and hypothyroidism. She follows with Dr. Mortensen. We have been asked to see in consultation for interrogation of loop recorder. Patient presented to the emergency department due to an episode of increased generalized weakness and states she felt flushed in the face. She is sort of vague in her symptoms, she denies dizziness or lightheadedness, but states she "felt off". She was facetiming her daughter, she hung up the phone and contacted her and came to the emergency department for further evaluation .She denies any confusion, worsening double vision, one sided weakness, facial droop, loss of bladder or bowel, syncope, palpitations, chest pain, shortness of breath, or loss of consciousness. Her previous CVA in March she had symptoms of double vision. This has not worsened. She does not have a history of CAD, [place], diabetes or hypertension. She is a non/never smoker. Patient had a 30 day cardiac event monitor after discharge the results revealed sinus mechanism, Intermittent PVCs line occasional PVCs and atrial couplets, No sustained arrhythmias. Recently on 05/28/2021 patient underwent loop recorder placement with Dr. Mortensen DIAGNOSTICS -EKG reveals sinus rhythm, heart rate 72, PACs, no significant ST-T wave abnormalities. -Brain CT revealed no acute intracranial abnormality. -BC 04/04/2021 Normal valvular function, except trace aortic regurgitation. No clot in left atrial appendage. No PFO. Normal LV function. Aorta appeared to be free of any plaque -2D echo 04/03/2021 EF greater than 55%, mild aortic regurgitation. -Chest xray no acute cardiopulmonary process. -Lasix, CBC unremarkable, sodium 140, potassium 4.1, BUN 26, serum, and 2.6, magnesium 2.2, AST 55, ALT 51, alkaline phosphatase 148, troponin negative, TSH within normal limits, covid negative REVIEW OF SYSTEMS At the time of my exam: CONSTITUTIONAL: Denies fever or chills. CARDIOVASCULAR: Denies chest pain, shortness of breath, orthopnea, PND or palpitations. RESPIRATORY: Denies cough. GASTROINTESTINAL: Denies abdominal pain, diarrhea, constipation, nausea or vomiting. MUSCULOSKELETAL: Denies myalgias. NEUROLOGIC: Denies numbness, tingling, headacbe or weakness. ENDOCRINE: Denies fatigue, weight change, polydipsia or polyurina. GENITOURINARY: Denies burning, hematuria or urgency with micturation. HEMATOLOGIC: Denies history of anemia or bleeding. PHYSICAL EXAMINATION Blood pressure 130/85 heart 68, afebrile, saturations greater than 92% on room air CONSTITUTIONAL: No apparent distress. HEENT: Head is normocephalic. Pupils are equal, round. Sclerae anicteric. Mucous membranes of the mouth are moist. No JVD. No carotid bruit. CHEST EXAMINATION: Lungs are clear to auscultation. No chest wall tenderness is noted on palpation or with deep breathing. HEART EXAMINATION: Regular rate and rhythm. S1, S2 heard. Systolic ejection murmur noted, No gallops or rub. ABDOMEN: Soft, nontender. Positive bowel sounds. EXTREMITIES: 2+ peripheral pulses, no lower extremity edema and no calf tenderness. NEUROLOGIC EXAMINATION: Patient is awake, alert and oriented x3. ASSESSMENT Episode of generalized weakness Recent acute ischemic CVA in 03/2021 History of hypothyroidism PLAN -Interrogate Loop Recorder -Continue cardiac telemetry -Further recommendations based on clinical course Nurse Practitioner note has been reviewed, I agree with a documented findings and plan of care. Patient was seen and examined. Past Medical History Past Medical History: Cancer, CVA/TIA, Deep Vein Thrombosis (DVT), GERD/Reflux, Supraventricular Tachycardia (SVT), Thyroid Disorder, Vascular Disorder Additional Past Medical History / Comment(s): SEE DR MORTENSEN'S H&P. diplopia and balance issues since TIA's. uterine cancer with surgery, skin canc er on neck treated with radiation. neck and back pain/scoliosis History of Any Multi-Drug Resistant Organisms: None Reported Past Surgical History: Tonsillectomy Additional Past Surgical History / Comment(s): Uterine conization, artery or vein tied off d/t DVT. Past Anesthesia/Blood Transfusion Reactions: No Reported Reaction, Motion Sickness Additional Past Anesthesia/Blood Transfusion Reaction / Comment(s): VERTIGO Smoking Status: Never smoker - Past Family History Father Family Medical History: Cancer Additional Family Medical History / Comment(s): Father had lung cancer. He was a smoker. Mother Family Medical History: Musculoskeletal Disorder, Neurologic Disorder Additional Family Medical History / Comment(s): Mother had parkinson's Medications and Allergies Home Medications Medication Instructions Recorded Confirmed Type Cetirizine HCl [Zyrtec] 10 mg PO HS 04/02/21 06/06/21 History Cyanocobalamin (Vitamin B-12) 1,000 mcg PO HS 04/02/21 06/06/21 History [Vitamin B-12] Fluticasone Nasal [place] [Flonase 1 spray EA NOSTRIL HS 04/02/21 06/06/21 History Nasal [place]] Levothyroxine Sodium [Synthroid] 100 mcg PO DAILY 04/02/21 06/06/21 History [place] 3-6-7 1 cap PO HS 04/02/21 06/06/21 History Ubidecarenone [Co Q-10] 100 mg PO HS 04/02/21 06/06/21 History Aspirin 81 mg PO DAILY #30 tab 04/05/21 06/06/21 Rx Cholecalciferol [Vitamin D3 (25 25 mcg PO DAILY 05/24/21 06/06/21 History Mcg = 1000 Iu)] atenoloL [Tenormin] 25 mg PO DAILY 05/24/21 06/06/21 History Atorvastatin [Lipitor] 40 mg PO HS 06/06/21 06/06/21 History Allergies Allergy/AdvReac Type Severity Reaction Status Date / Time Latex, Natural Rubber Allergy Rash/Hives Verified 06/06/21 20:45 Physical Exam Vitals: Vital Signs Temp Pulse Pulse Resp BP BP Pulse Ox 06/07/21 12:30 97.5 F L 06/07/21 12:10 68 16 130/85 97 06/07/21 08:00 79 06/07/21 06:16 87 18 121/70 98 06/07/21 03:55 72 18 90/55 95 06/07/21 00:11 78 18 115/78 97 06/06/21 22:14 75 18 115/86 95 06/06/21 21:04 79 18 149/85 98 06/06/21 19:30 97.5 F L 73 18 145/85 98 Intake and Output 06/06/21 06/07/21 06/07/21 22:59 06:59 14:59 Other: Weight 57.606 kg 57.606 kg Results 06/06/21 Unknown 06/06/21 Unknown Cardiac Enzymes 06/06/21 06/06/21 Range/Units Unknown Unknown AST 55 H (14-36) U/L Troponin I <0.012 (0.000-0.034) ng/mL Coagulation 06/06/21 Range/Units Unknown PT 10.3 (9.0-12.0) sec APTT 19.4 L (22.0-30.0) sec CBC 06/06/21 Range/Units Unknown WBC 8.6 (3.8-10.6) k/uL RBC 3.97 (3.80-5.40) m/uL Hgb 12.5 (11.4-16.0) gm/dL Hct 37.0 (34.0-46.0) % Plt Count 231 (150-450) k/uL Comprehensive Metabolic Panel 06/06/21 Range/Units Unknown Sodium 140 (137-145) mmol/L Potassium 4.4 (3.5-5.1) mmol/L Chloride 106 (98-107) mmol/L Carbon Dioxide 24 (22-30) mmol/L BUN 26 H (7-17) mg/dL Creatinine 0.62 (0.52-1.04) mg/dL Glucose 95 (74-99) mg/dL Calcium 9.3 (8.4-10.2) mg/dL AST 55 H (14-36) U/L ALT 51 H (4-34) U/L Alkaline Phosphatase 148 H (38-126) U/L Total Protein 7.1 (6.3-8.2) g/dL Albumin 4.0 (3.5-5.0) g/dL Current Medications Generic Name Dose Route Start Last Admin Trade Name Freq PRN Reason Stop Dose Admin Aspirin 81 mg 06/07/21 09:00 06/07/21 08:30 Aspirin 81 Mg PO 81 mg DAILY [facility] Administration Atenolol 25 mg 06/07/21 09:00 06/07/21 08:21 Atenolol 25 Mg Tab PO Not Given DAILY [facility] Atorvastatin Calcium 40 mg 06/07/21 21:00 Atorvastatin 40 Mg Tab PO [facility] Cholecalciferol 25 mcg 06/07/21 09:00 06/07/21 08:30 Cholecalciferol 25 Mcg (1000 Iu) Tablet PO 25 mcg DAILY [facility] Administration Clopidogrel Bisulfate 75 mg 06/07/21 12:15 Clopidogrel 75 Mg Tab PO DAILY [facility] Cyanocobalamin 1,000 mcg 06/07/21 21:00 Cyanocobalamin 500 Mcg Tab PO HS [facility] Famotidine 20 mg 06/07/21 09:00 06/07/21 08:30 Famotidine 20 Mg Tab PO 20 mg BID SHIRA Administration Fluticasone Propionate 1 spray 06/07/21 21:00 Fluticasone 50mcg/[place] Nasal 16gm EA NOSTRIL HS [facility] Ibuprofen 400 mg 06/07/21 02:20 Ibuprofen 400 Mg Tab PO Q6HR PRN Mild Pain or Fever > 100.5 Levothyroxine Sodium 100 mcg 06/07/21 06:30 06/07/21 08:21 Levothyroxine 100 Mcg Tab PO Not Given DAILY@0630 [facility] Loratadine 10 mg 06/07/21 21:00 Loratadine 10 Mg Tab PO HS [facility] Naloxone HCl 0.2 mg 06/07/21 02:20 Naloxone 0.4 Mg/Ml 1 Ml Vial IV Q2M PRN Opioid Reversal Ondansetron HCl 4 mg 06/07/21 02:20 Ondansetron 4 Mg/2 Ml Vial IVP Q8HR PRN Nausea And Vomiting Tramadol HCl 50 mg 06/07/21 02:20 Tramadol 50 Mg Tab PO Q6H PRN Moderate Pain Intake and Output 06/06/21 06/07/21 06/07/21 22:59 06:59 14:59 Other: Weight 57.606 kg 57.606 kg Patient Weight 06/08/21 06:59 Weight 57.606 kg 06/06/21 Unknown 06/06/21 Unknown
--- NOTE | 2021-06-07 13:16 | P.HPIM ---
History of Present Illness H&P Date: 06/07/21 This is a pleasant 71-year-old female who presented to the with complaints of transient episode of weakness on 5:30 yesterday evening. Patient was speaking with her daughter on face time and she felt the room began to spin and had generalized weakness and per the patient's daughter her face was flushed this time. There were no speech deficits however patient does have a history of stroke with similiar symptoms. Patient does state that this is not vertigo she has vertigo occasionally and this feels different. Symptoms are vague, she does deny any dizziness or lightheadedness, chest pain chest pressure or palpitations. Patient was admitted to the hospital in March 2021 with a similar sensation of the room beginning to spin and per patient at that time was diagnosed with acute ischemic stroke. She has had diplopia and difficulty with close-up vision since she does follow with neuro-opthamologist and per patient has gained about 60% of her eye vision back since than. Patient sees Dr. Smart outpatient and saw him this last week on a telehealth visit and her lipitor was increased. She also follows with Dr. Mortensen and had a loop recorder placed 10 days ago, and had just seen the canning machine operator the office on Thursday to have the stitches removed from the lupus per se. Symptoms have currently resolved. Patient follows with Dr. Blunt in the primary care setting. Medical history is significant for uterine cancer with surgery, skin cancer on neck with radiation, previous TIA, DVT, GERD, SVT, hypothyroidism, neck and back pain, scoliosis, never smoker no alcohol or drug use. Labs on admission show a white count 8.6, hemoglobin 12.5, sodium 140, potassium 4.4, BUN 26, creatinine 0.62, AST 55, ALT 51, alk phos 148, troponin negative, urinalysis negative, Covid negative. TSH is low normal at 0.686. Brain CT shows no acute process. Chest x-ray shows no acute process. Abdomen ultrasound shows 2 x 2 cm cyst in the superior right lobe of the liver with no solid mass no dilated ducts no gallstone. Vital signs stable afebrile, blood pressure 120/70 98% room air, heart rate 87. Patient requested lipid panel checked, however was checked at the end of March of last year was within normal limits. Patient is admitted to the hospital with consult to neurology and cardiology. REVIEW OF SYSTEMS: CONSTITUTIONAL: No fever, no malaise, no fatigue. HEENT: No recent visual problems or hearing problems. Denied any sore throat. History of diplopia since March last year CARDIOVASCULAR: No chest pain, orthopnea, PND, no palpitations, no syncope. PULMONARY: No shortness of breath, no cough, no hemoptysis. GASTROINTESTINAL: No diarrhea, no nausea, no vomiting, no abdominal pain. NEUROLOGICAL: No headaches, no weakness, no numbness. HEMATOLOGICAL: Denies any bleeding or petechiae. GENITOURINARY: Denies any burning micturition, frequency, or urgency. MUSCULOSKELETAL/RHEUMATOLOGICAL: Denies any joint pain, swelling, or any muscle pain. ENDOCRINE: Denies any polyuria or polydipsia. The rest of the 14-point review of systems is negative. PHYSICAL EXAMINATION: GENERAL: The patient is alert and oriented x3, not in any acute distress. Well developed, well nourished. HEENT: Pupils are round and equally reacting to light. EOMI. No scleral icterus. No conjunctival pallor. Normocephalic, atraumatic. No pharyngeal erythema. No thyromegaly. CARDIOVASCULAR: S1 and S2 present. No murmurs, rubs, or gallops. PULMONARY: Chest is clear to auscultation, no wheezing or crackles. ABDOMEN: Soft, nontender, nondistended, normoactive bowel sounds. No palpable organomegaly. MUSCULOSKELETAL: No joint swelling or deformity. EXTREMITIES: No cyanosis, clubbing, or pedal edema. NEUROLOGICAL: Gross neurological examination did not reveal any focal deficits. SKIN: No rashes. Assessment and plan Assessment Rule out TIA with symptoms of transient vertigo like sensation and generalized weakness that has resolved at this time, brain CT negative Elevated liver enzymes History acute ischemic stroke in Mar with residual diplopia and balance issues History of deep vein thrombosis History of SVT Hypothyroidism History of uterine cancer with surgery Gastric esophageal reflux disease GI prophylaxis DVT prophylaxis FULL CODE Plan Neurology consultation Interrogate loop recorder Continue neuro checks Resume home medications Prognosis guarded Past Medical History Past Medical History: Cancer, CVA/TIA, Deep Vein Thrombosis (DVT), GERD/Reflux, Supraventricular Tachycardia (SVT), Thyroid Disorder, Vascular Disorder Additional Past Medical History / Comment(s): SEE DR MORTENSEN'S H&P. diplopia and balance issues since '. uterine cancer with surgery, skin cancer on neck treated with radiation. neck and back pain/scoliosis History of Any Multi-Drug Resistant Organisms: None Reported Past Surgical History: Tonsillectomy Additional Past Surgical History / Comment(s): Uterine conization, artery or vein tied off d/t DVT. Past Anesthesia/Blood Transfusion Reactions: No Reported Reaction, Motion Sickness Additional Past Anesthesia/Blood Transfusion Reaction / Comment(s): VERTIGO Past Psychological History: No Psychological Hx Reported Smoking Status: Never smoker Past Alcohol Use History: None Reported Past Drug Use History: None Reported - Past Family History Father Family Medical History: Cancer Additional Family Medical History / Comment(s): Father had lung cancer. He was a smoker. Mother Family Medical History: Musculoskeletal Disorder, Neurologic Disorder Additional Family Medical History / Comment(s): Mother had parkinson's Medications and Allergies Home Medications Medication Instructions Recorded Confirmed Type Cetirizine HCl [Zyrtec] 10 mg PO HS 04/02/21 06/06/21 History Cyanocobalamin (Vitamin B-12) 1,000 mcg PO HS 04/02/21 06/06/21 History [Vitamin B-12] Fluticasone Nasal [place] [Flonase 1 spray EA NOSTRIL HS 04/02/21 06/06/21 History Nasal [place]] Levothyroxine Sodium [Synthroid] 100 mcg PO DAILY 04/02/21 06/06/21 History [place] 3-6-7 1 cap PO HS 04/02/21 06/06/21 History Ubidecarenone [Co Q-10] 100 mg PO HS 04/02/21 06/06/21 History Aspirin 81 mg PO DAILY #30 tab 04/05/21 06/06/21 Rx Cholecalciferol [Vitamin D3 (25 25 mcg PO DAILY 05/24/21 06/06/21 History Mcg = 1000 Iu)] atenoloL [Tenormin] 25 mg PO DAILY 05/24/21 06/06/21 History Atorvastatin [Lipitor] 40 mg PO HS 06/06/21 06/06/21 History Allergies Allergy/AdvReac Type Severity Reaction Status Date / Time Latex, Natural Rubber Allergy Rash/Hives Verified 06/06/21 20:45 Physical Exam Vitals: Vital Signs Temp Pulse Resp BP Pulse Ox 06/07/21 06:16 87 18 121/70 98 06/07/21 03:55 72 18 90/55 95 06/07/21 00:11 78 18 115/78 97 06/06/21 22:14 75 18 115/86 95 06/06/21 21:04 79 18 149/85 98 06/06/21 19:30 97.5 F L 73 18 145/85 98 Intake and Output 06/06/21 06/07/21 06/07/21 22:59 06:59 14:59 Other: Weight 57.606 kg Results CBC & Chem 7: 06/06/21 Unknown 06/06/21 Unknown Labs: Abnormal Lab Results - Last 24 Hours (Table) 06/06/21 06/06/21 06/06/21 Range/Units 22:13 Unknown Unknown Eosinophils # 1.0 H (0-0.7) k/uL APTT 19.4 L (22.0-30.0) sec BUN (7-17) mg/dL AST (14-36) U/L ALT (4-34) U/L Alkaline Phosphatase (38-126) U/L Urine Ketones Trace H (Negative) Ur Leukocyte Esterase Trace H (Negative) Urine Mucus Rare H (None) /hpf 06/06/21 Range/Units Unknown Eosinophils # (0-0.7) k/uL APTT (22.0-30.0) sec BUN 26 H (7-17) mg/dL AST 55 H (14-36) U/L ALT 51 H (4-34) U/L Alkaline Phosphatase 148 H (38-126) U/L Urine Ketones (Negative) Ur Leukocyte Esterase (Negative) Urine Mucus (None) /hpf Assessment and Plan Time with Patient: Greater than 30
[2021-06-07] MEDS: THYROXINE PO SCH (14:33)
[2021-06-07] MEDS: CLOPIDOGREL 75 MG TAB PO SCH (14:34)
[2021-06-07] MEDS: TENORMIN 25 MG PO SCH (14:35)
--- NOTE | 2021-06-07 14:59 | P.CNNES ---
History of Present Illness Consult date: 06/07/21 Requesting physician: Yesi Anderson Reason for Consult: h/o TIA, similar episode along with dizziness and generalized weakness History of Present Illness: Patient is a 71-year-old female came to the hospital by ambulance yesterday at 7:25 PM. EMS flow sheet not available in the chart. Patient was recently admitted to the hospital on 04/02/2021 for CVA, as mentioned below. Patient had mild residual double vision related to left sixth nerve palsy from the stroke. Patient at around 5:15 PM was talking to her daughter, face timing, when she suddenly felt an episode of dizziness, swishing sensation in her head which was not vertigo. She felt she could not walk as if she would fall. The bad symptoms lasted for 1 minute, but then she felt unsteady for quite a while, for over 20 minutes. Her daughter noticed that her face turned very flushed. She called her , and patient was brought to the hospital. Patient did not have any numbness tingling focal weakness, slurred speech facial droop, or any obvious worsening of her baseline diplopia. There was no mental confusion or loss of awareness with this episode. Vital signs on arrival blood pressure 145/85 pulse rate 73 temperature 97.5 Blood test shows normal CBC, PT/PTT. Chem-7 is normal, AST is mildly elevated 55, ALT 51. Troponin negative. UA negative. Coronal virus PCR negative. Patient's last hemoglobin A1c 5.2 on 04/03/2021 and lipid panel with cholesterol 177, LDL 82, HDL 85 and triglycerides 42 on 04/03/2021. Patient was recently seen by Dr. Mansoor Powers on 04/03/2021 for CVA, third nerve palsy. MRA of the brain was normal. MRI of the brain revealed cerebral vascular infarcts involving the posterior aspect of the red nucleus on the left, possibly the medial longitudinal fasciculus, Edinger Katie nucleus, possible involvement of the oculomotor nucleus (per report). On my review, it appears to involve the left paraaquiductal region in the upper mid brain. Also another small tiny spot involving the left occipital region. 2-D echo revealed normal left ventricle wall thickness, systolic function with EF greater than 55%. Left ventricle size is normal. Left atrial size is normal. Mild aortic regurgitation. Patient also underwent BC, which revealed normal valvular function, except trace aortic regurgitation. No clot in the left atrial appendage. No PFO. Normal left-ventricular function. Aorta appears to be free of any plaque. Patient was placed on dual antiplatelet medication for 21 days, and then was recommended to stop Plavix and continue aspirin 81 mg. (Prior to the initial CVS she was taking aspirin very sporadically once a week). There was also some concern of possible cerebral aneurysm. Patient was also followed up with Dr. Figueredo, who felt there was no definitive aneurysm. No intervention was recommended, however her dose of Lipitor was increased from 20-40 mg. Patient is scheduled for CTA of head and neck in October 2021. Patient also has been seen by Dr. Powers in his office in early part of April 2021. Patient also follows up with neuro-channel lip wetter and feels her ocular muscles improved about 60%. Patient denies diabetes. She has never smoked. Patient takes aspirin 81 mg, Lipitor 40 mg, atenolol 25 mg, B12 1000 g by mouth. Patient had undergone loop recorder placement 10 days ago. Review of Systems As mentioned above in HPI. All other 14 points of review of systems reviewed and noncontributory to the present illness. Past Medical History Past Medical History: Cancer, CVA/TIA, Deep Vein Thrombosis (DVT), GERD/Reflux, Supraventricular Tachycardia (SVT), Thyroid Disorder, Vascular Disorder Additional Past Medical History / Comment(s): SEE DR MORTENSEN'S H&P. diplopia and balance issues since TIA's. uterine cancer with surgery, skin cancer on neck treated with radiation. neck and back pain/scoliosis History of Any Multi-Drug Resistant Organisms: None Reported Past Surgical History: Tonsillectomy Additional Past Surgical History / Comment(s): Uterine conization, artery or vein tied off d/t DVT. Past Anesthesia/Blood Transfusion Reactions: No Reported Reaction, Motion Sickness Additional Past Anesthesia/Blood Transfusion Reaction / Comment(s): VERTIGO Past Psychological History: No Psychological Hx Reported Smoking Status: Never smoker Past Alcohol Use History: None Reported Past Drug Use History: None Reported - Past Family History Father Family Medical History: Cancer Additional Family Medical History / Comment(s): Father had lung cancer. He was a smoker. Mother Family Medical History: Musculoskeletal Disorder, Neurologic Disorder Additional Family Medical History / Comment(s): Mother had parkinson's Medications and Allergies Home Medications Medication Instructions Recorded Confirmed Type Cetirizine HCl [Zyrtec] 10 mg PO HS 04/02/21 06/06/21 History Cyanocobalamin (Vitamin B-12) 1,000 mcg PO HS 04/02/21 06/06/21 History [Vitamin B-12] Fluticasone Nasal [place] [Flonase 1 spray EA NOSTRIL HS 04/02/21 06/06/21 History Nasal [place]] Levothyroxine Sodium [Synthroid] 100 mcg PO DAILY 04/02/21 06/06/21 History [place] 3-6-7 1 cap PO HS 04/02/21 06/06/21 History Ubidecarenone [Co Q-10] 100 mg PO HS 04/02/21 06/06/21 History Aspirin 81 mg PO DAILY #30 tab 04/05/21 06/06/21 Rx Cholecalciferol [Vitamin D3 (25 25 mcg PO DAILY 05/24/21 06/06/21 History Mcg = 1000 Iu)] atenoloL [Tenormin] 25 mg PO DAILY 05/24/21 06/06/21 History Atorvastatin [Lipitor] 40 mg PO HS 06/06/21 06/06/21 History Allergies Allergy/AdvReac Type Severity Reaction Status Date / Time Latex, Natural Rubber Allergy Rash/Hives Verified 06/06/21 20:45 Physical Examination - Vital Signs Vital Signs: Vital Signs Temp Pulse Resp BP Pulse Ox 06/07/21 06:16 87 18 121/70 98 06/07/21 03:55 72 18 90/55 95 06/07/21 00:11 78 18 115/78 97 06/06/21 22:14 75 18 115/86 95 06/06/21 21:04 79 18 149/85 98 06/06/21 19:30 97.5 F L 73 18 145/85 98 Intake and Output 06/06/21 06/07/21 06/07/21 22:59 06:59 14:59 Other: Weight 57.606 kg Patient is an elderly female, very pleasant, in no acute distress. Patient is alert awake oriented to time place and person. Speech and language functions are normal. No aphasia or dysarthria. Attention, concentration and fund of knowledge is adequate. On cranial examination, pupils are equal, round and reacting to light, visual escobedo are full on confrontation, with no neglect on double simultaneous stimulation. Her extraocular muscles significant for mild left lateral rectus palsy with diplopia looking to the left. No nystagmus. No Cheyenne's. Face is symmetric, tongue protrudes to the midline. Palatal elevation and sensation normal, hearing and shoulder shrug normal, facial sensation normal. Shoulder shrug normal. On muscle strength testing, there is no pronator drift and the strength is normal in arms and legs distally and proximally. Deep tendon reflexes are 2+ and symmetric and plantars downgoing bilaterally. Sensory to touch is equal with no neglect. Cerebellar function showed mild tremulousness for [id number] testing, but no ataxia. In the lower limbs, patient has mild ataxia bilaterally for [id number] testing. No dysdiadochokinesia. Tone and bulk of muscles normal. Gait patient walked, was somewhat slow to walk. On general examination, there is no carotid bruit or murmur, S1-S2 audible. Abdomen is soft nontender. No organomegaly. Bowel sounds present. Chest is clear. Peripheral pulses are present. No edema. Results - Laboratory Findings CBC and BMP: 06/06/21 Unknown 06/06/21 Unknown Abnormal Lab Findings: Abnormal Labs 06/06/21 06/06/21 06/06/21 22:13 Unknown Unknown Eosinophils # 1.0 H APTT 19.4 L BUN AST ALT Alkaline Phosphatase Urine Ketones Trace H Ur Leukocyte Esterase Trace H Urine Mucus Rare H 06/06/21 Unknown Eosinophils # APTT BUN 26 H AST 55 H ALT 51 H Alkaline Phosphatase 148 H Urine Ketones Ur Leukocyte Esterase Urine Mucus Assessment and Plan Assessment: * Possible TIA versus CVA manifesting with transient dizziness, gait imbalance. Symptoms now have mostly resolved although she still feels slightly off balance. Differential diagnosis also includes arrhythmia, seizure less likely, as there was no alteration in his level of consciousness. * Recent history of CVA on 04/02/2021 involving the left upper midbrain adjacent to the aqueduct on the left side. * Possible Hypertension Plan: * Patient had presented with possible TIA. Patient had undergone extensive workup performed with recent hospitalization on 04/02/2021. * At this time we will initiate cardiology consultation for loop recorder interrogation rule out paroxysmal atrial fibrillation. * MRI of the brain evaluate for acute stroke * Recommend dual antiplatelet medication Plavix 75 mg and aspirin 81 mg for 21 days, then stop aspirin and continue Plavix indefinitely. * PT and OT. * Telemetry monitoring. * Dr. Mansoor Powers Will resume neurology service from the morning. * Thank you for the consult. Time with Patient: Greater than 30
--- NOTE | 2021-06-07 16:57 | MR ---
MR brain without contrast HISTORY: Cerebrovascular accident versus TIA, weakness and dizziness with history of TIAs Exam correlated to CT brain 07/04/2021, MR brain 04/03/2021 Altered planar multisequence imaging through the brain without contrast There is no restricted diffusion. There are expected vascular flow voids. There is no hemorrhage or h ydrocephalus. Cerebellopontine angles, corpus callosum, pituitary, cervical medullary junction are wi thin normal limits. The orbits show symmetric appearance. Paranasal sinuses and mastoid air cells are well aerated. White matter signal changes in the periventricular, subcortical white matter are stabl e. IMPRESSION: Stable white matter demyelination. No acute abnormality is evident.
[2021-06-07] MEDS ORDERED: CYANOCOBALAMIN 500 MCG TAB PO SCH (21:00)
[2021-06-07] MEDS ORDERED: FLUTICASONE 50MCG/SPRAY NASAL 16GM EA NOSTRIL SCH (21:00)
[2021-06-07] MEDS ORDERED: LORATADINE 10 MG TAB PO SCH (21:00)
[2021-06-07] MEDS ORDERED: ATORVASTATIN 40 MG TAB PO SCH (21:00)
[2021-06-08] MEDS: THYROXINE PO SCH (05:46)
[2021-06-08] MEDS: CHOLECALCIFEROL 25 MCG (1000 IU) TABLET PO SCH (08:32)
[2021-06-08] MEDS: CLOPIDOGREL 75 MG TAB PO SCH (08:32)
[2021-06-08] MEDS: ASPIRIN 81 MG PO SCH (08:32)
[2021-06-08] MEDS: FAMOTIDINE 20 MG TAB PO SCH (08:32)
[2021-06-08] MEDS: TENORMIN 25 MG PO SCH (08:33)
[2021-06-08 08:57] LABS: Basophils # (A) 0.08 X 10*3/uL (0.00-0.10); Basophils % (A) 0.9 %; Eosinophils % (A) 12.9 %; HCT 35.4 % (37.2-46.3); HGB 11.5 g/dL (12.0-15.0); Immature Grans, Automated 0.4 %; Lymphocytes # (A) 1.35 X 10*3/uL (0.90-5.00); Lymphocytes % (A) 15.9 %; MCH 29.4 pg (27.0-32.0); MCHC 32.5 g/dL (32.0-37.0); MCV 90.5 fL (80.0-97.0); Mean Platelet Volume 10.3 fL (9.5-12.2); Monocytes # (A) 0.69 X 10*3/uL (0.20-1.00); Monocytes % (A) 8.1 %; NRBC Per 100 WBC 0 /100 WBCS (0.0-0.0); Neutrophils # (A) 5.26 X 10*3/uL (1.80-7.70); Neutrophils % (A) 61.8 %; Platelet Count 264 X 10*3/uL (140-440); RBC 3.91 X 10*6/uL (4.10-5.20); WBC 8.51 X 10*3/uL (4.50-10.00)
[2021-06-08 09:01] LABS: Anion Gap 10.5 mmol/L (10.00-18.00); BUN/Creat Ratio 18.86 Ratio (12.00-20.00); Blood Urea Nitrogen 13.2 mg/dL (9.0-27.0); Calcium 9.1 mg/dL (8.7-10.3); Carbon Dioxide 23.5 mmol/L (20.0-27.5); Non-African American GFR(CKD) 87.2 (60.0-200.0); Potassium 4.1 mmol/L (3.5-5.5)
[2021-06-08 09:18] VITALS: RESP 16; TEMP 97.2
[2021-06-08 11:03] VITALS: BP 106/68; PULSE 94
--- NOTE | 2021-06-08 11:33 | P.PN ---
Subjective ISTORY OF PRESENTING ILLNESS This is a pleasant 70-year-old female past medical history significant for recent acute ischemic stroke in March 2021 and hypothyroidism. She follows with Dr. Rios. We have been asked to see in consultation for interrogation of loop recorder. Patient presented to the emergency department due to an episode of increased generalized weakness and states she felt flushed in the face. She is sort of vague in her symptoms, she denies dizziness or lightheadedness, but states she "felt off". She was facetiming her daughter, she hung up the phone and contacted her and came to the emergency department for further evaluation .She denies any confusion, worsening double vision, one sided weakness, facial droop, loss of bladder or bowel, syncope, palpitations, chest pain, shortness of breath, or loss of consciousness. Her previous CVA in March she had symptoms of double vision. This has not worsened. She does not have a history of CAD, DC, diabetes or hypertension. She is a non/never smoker. DIAGNOSTICS -EKG reveals sinus rhythm, heart rate 72, PACs, no significant ST-T wave abnormalities. -Brain CT revealed no acute intracranial abnormality. -BC 04/04/2021 Normal valvular function, except trace aortic regurgitation. No clot in left atrial appendage. No PFO. Normal LV function. Aorta appeared to be free of any plaque -2D echo 04/03/2021 EF greater than 55%, mild aortic regurgitation. -Chest xray no acute cardiopulmonary process. -Lasix, CBC unremarkable, sodium 140, potassium 4.1, BUN 26, serum, and 2.6, magnesium 2.2, AST 55, ALT 51, alkaline phosphatase 148, troponin negative, TSH within normal limits, covid negative 06/08/2021 Loop recorder interrogation revealed no significant arrhythmias, specifically no atrial fibrillation or pauses. Blood pressure 107/71 heart rate 66 afebrile and maintaining oxygen saturation on room air. Brain MRI revealed stable white matter demyelination with no acute abnormality noted. PHYSICAL EXAMINATION CONSTITUTIONAL: No apparent distress. HEENT: Head is normocephalic. Pupils are equal, round. Sclerae anicteric. Mucous membranes of the mouth are moist. No JVD. No carotid bruit. CHEST EXAMINATION: Lungs are clear to auscultation. No chest wall tenderness is noted on palpation or with deep breathing. HEART EXAMINATION: Regular rate and rhythm. S1, S2 heard. Systolic ejection murmur noted, No gallops or rub. EXTREMITIES: 2+ peripheral pulses, no lower extremity edema and no calf tenderness. ASSESSMENT Episode of generalized weakness Recent acute ischemic CVA in 03/2021 History of hypothyroidism PLAN Stable from a cardiac perspective. Follow up with Dr. Rios upon discharge. Nurse Practitioner note has been reviewed, I agree with a documented findings and plan of care. Patient was seen and examined. Objective - Vital Signs Vital signs: Vital Signs Temp 97.2 F L 06/08/21 07:00 Pulse 66 06/08/21 07:00 Resp 16 06/08/21 07:00 BP 107/71 06/08/21 07:00 Pulse Ox 97 06/08/21 07:00 Intake & Output 06/07/21 06/08/21 06/08/21 18:59 06:59 18:59 Intake Total 118 118 Balance 118 118 Weight 57.606 kg Intake: Oral 118 118 Other: # Voids 2 1 - Labs CBC & Chem 7: 06/08/21 06:30 06/08/21 06:30 Labs: Abnormal Lab Results - Last 24 Hours (Table) 06/08/21 Range/Units 06:30 RBC 3.91 L (4.10-5.20) X 10*6/uL Hgb 11.5 L (12.0-15.0) g/dL Hct 35.4 L (37.2-46.3) % Eosinophils # 1.10 H (0.04-0.35) X 10*3/uL
--- NOTE | 2021-06-08 11:44 | P.PN ---
Subjective Progress Note Date: 06/08/21 The patient is seen at bedside and is accompanied by her . The patient follows-up with me as outpatient and I am seeing her for first time during this hospital visit. Please refer to Dr. Keane's note for further details. She feels her dizziness is improved. She denies of any new neurological prob lems. Objective - Vital Signs Vital signs: Vital Signs Temp 97.2 F L 06/08/21 07:00 Pulse 94 06/08/21 09:00 Resp 16 06/08/21 07:00 BP 106/68 06/08/21 09:00 Pulse Ox 97 06/08/21 07:00 Intake & Output 06/07/21 06/08/21 06/08/21 18:59 06:59 18:59 Intake Total 118 118 Balance 118 118 Weight 57.606 kg Intake: Oral 118 118 Other: # Voids 2 1 - Exam GENERAL: The patient is lying in bed and is not in acute distress. NEUROLOGICAL: Higher mental function: The patient is awake, alert, oriented to self, place and time. Patient is following commands. No aphasia and no neglect. Cranial nerves: The pupils are round, equal and reactive to light. Visual escobedo are full to confrontation throughout. Extraocular movement is intact throughout all direction except upward gaze (since feels dizzy looking up which is old. Currently EOM is improved compared to her last visit I have seen her) No nystagmus is noted. Facial sensation is normal to touch throughout. The facial strength is normal throughout. Tongue is midline and moved s jaziel-to-side without any difficulty. No dysarthria is noted. Shoulder shrug is normal bilaterally. Motor: Gait is normal. The strength is 5 over 5 throughout. Normal tone and bulk. Cerebellum: Normal finger to nose bilaterally. Sensation: Sensation is normal to touch throughout. WORK-UP: U/A is negative for UTI. Coronavirus PCR is not detected. TSH: 0.6868 MR the brain is reported as stable white matter demyelination. No acute abnormalities evident. I personally reviewed the MRI and there is no acute or subacute ischemic stroke. - Labs CBC & Chem 7: 06/08/21 06:30 06/08/21 06:30 Labs: Abnormal Lab Results - Last 24 Hours (Table) 06/08/21 Range/Units 06:30 RBC 3.91 L (4.10-5.20) X 10*6/uL Hgb 11.5 L (12.0-15.0) g/dL Hct 35.4 L (37.2-46.3) % Eosinophils # 1.10 H (0.04-0.35) X 10*3/uL Assessment and Plan Assessment: * Possible TIA with transient dizziness, gait imbalance. * Recent history of CVA on 04/02/2021 involving the left upper midbrain adjacent to the aqueduct on the left side and left occipital---had dizziness, EOM deficits (left partial SIVA), diplopia is improving * Possible Hypertension * ?Left basilar aneurysm on previous imaging (but felt unlikely) Plan: * Recommend dual antiplatelet medication Plavix 75 mg and aspirin 81 mg for 21 days, then stop aspirin and continue Plavix indefinitely. Continue Lipitor 40mg qhs for secondary stroke prophylaxis (Dr. Larios has increased it from 20 to 40mg). * PT and OT. * She is scheduled to have repeat CTA head for ?aneurysm during summer time and is following-up with Dr. Larios. * Patient to continue to follow-up with cardiology team. They interrogated the loop recorder and documented "no significant arrhythmias, specifically no atri al fibrillation or pauses". * Will defer the rest of medical management to the primary team. * Patient has an appointment to follow-up with myself as outpatient neurological care (in 2-3 weeks from now). There is no further neurological work-up. The plan is discussed with the patient, her who is at bedside and primary team. Mansoor Powers M.D. Neuro-Hospitalist Time with Patient: Less than 30
--- NOTE | 2021-06-09 15:24 | P.DS ---
Providers Date of admission: 06/06/21 22:38 Attending physician: Efra Wiseman Consults: 06/07/21 02:21 Consult Physician Routine Consulting Provider: Savanna Keane Consult Reason/Comments: h/o TIA, similar episode along with dizziness and generalized weakness Do you want consulting provider notified?: Yes, Notify in am 06/07/21 12:09 Consult Physician Urgent Consulting Provider: Natalee Rios Consult Reason/Comments: Loop recorder interrogation, rule out Atrial Fib with TIA Do you want consulting provider notified?: Yes Primary care physician: Marie Blunt MD Hospital Course: Final Diagnosis Rule out TIA with symptoms of transient dizziness and gait imbalance, imaging negative for acute stroke. Questionable left basilar aneurysmal previous imaging, patient follows with interventional neurology Elevated liver enzymes History acute ischemic stroke in [place] with residual diplopia and balance issues History of deep vein thrombosis History of SVT Hypothyroidism History of uterine cancer with surgery Gastric esophageal reflux disease GI prophylaxis DVT prophylaxis Discharge disposition Patient stable for discharge after evaluation by neurology to follow up in the office with her neurologist as well as her neuro-chemical processing laborer and PCP. Recommendations for Aspirin and Plavix for 21 days and then discontinue aspirin to continue on Plavix daily indefinitely in addition to Lipitor for stroke prevention. Hospital course This is a pleasant 71-year-old female who presented to the with complaints of transient episode of weakness on 530 yesterday evening. Patient was speaking with her daughter on face time and she felt the room began to spin and had generalized weakness and per the patient's daughter her face was flushed this time. There were no speech deficits however patient does have a history of stroke with similiar symptoms. Patient does state that this is not vertigo she has vertigo occasionally and this feels different. Symptoms are vague, she does deny any dizziness or lightheadedness, chest pain chest pressure or palpitations. Patient was admitted to the hospital in March 2021 with a similar sensation of the room beginning to spin and per patient at that time was diagnosed with acute ischemic stroke. She has had diplopia and difficulty with close-up vision since she does follow with neuro-opthamologist and per patient has gained about 60% of her eye vision back since than. Patient sees Dr. Smart outpatient and saw him this last week on a telehealth visit and her lipitor was increased. She also follows with Dr. Rios and had a loop recorder placed 10 days ago, and had just seen the brick burner the office on Thursday to have the stitches removed from the lupus per se. Symptoms have currently resolved. Patient follows with Dr. Blunt in the primary care setting. Medical history is significant for uterine cancer with surgery, skin cancer on neck with radiation, previous TIA, DVT, GERD, SVT, hypothyroidism, neck and back pain, scoliosis, never smoker no alcohol or drug use. Patient is admitted to the hospital with consult to neurology and cardiology Vital signs stable afebrile, blood pressure 120/70 98% room air, heart rate 87. Labs on admission show a white count 8.6, hemoglobin 12.5, sodium 140, potassium 4.4, BUN 26, creatinine 0.62, AST 55, ALT 51, alk phos 148, troponin negative, urinalysis negative, Covid negative. TSH is low normal at 0.686. Brain CT shows no acute process. Chest x-ray shows no acute process. Abdomen ultrasound shows 2 x 2 cm cyst in the superior right lobe of the liver with no solid mass no dilated ducts no gallstone. Brain MRI showed stable white matter demyelination with no acute abnormality evident. Loop recorder interrogated with no significant arrhythmias and specifically no A. fib or pauses 06/08/2021 Patient evaluated today at the bedside with her . Evaluated by neurology who is cleared patient for discharge with recommendations as noted above. Labs today show white count 8.51, hemoglobin 11.5, sodium 142, potassium 4.1, chloride 108, BUN 13.2, creatinine 0.7, calcium 9.1. Vital signs are stable, afebrile, heart rate 66, blood pressure 107/71 and she is 97% on room air. It was a chest pain, chest pressure, cough or shortness of breath. No complete palpitations. No nausea vomiting or diarrhea. Other neurological symptoms are stable. No lightheadedness noted. Lungs clear to auscultation, S1-S2 present. No focal weakness noted. Patient requesting a repeat lipid panel, she is given script to repeat outpatient and to follow up with her PCP and nuerology, also repeat CBC outpatient. Please see medication reconciliation for list of current medications. Thank you for allowing us to participate in the care of this patient. Patient Condition at Discharge: Fair Plan - Discharge Summary Discharge Rx Participant: No New Discharge Prescriptions: New Clopidogrel Bisulfate [Plavix] 75 mg PO DAILY #1 tab Famotidine [Pepcid] 20 mg PO DAILY #30 tab Continue [place] 3-6-7 1 cap PO HS Atorvastatin [Lipitor] 40 mg PO HS Aspirin 81 mg PO DAILY #30 tab Cyanocobalamin (Vitamin B-12) [Vitamin B-12] 1,000 mcg PO HS Ubidecarenone [Co Q-10] 100 mg PO HS Cetirizine HCl [Zyrtec] 10 mg PO HS Levothyroxine Sodium [Synthroid] 100 mcg PO DAILY Fluticasone Nasal [place] [Flonase Nasal [place]] 1 spray EA NOSTRIL HS Cholecalciferol [Vitamin D3 (25 Mcg = 1000 Iu)] 25 mcg PO DAILY atenoloL [Tenormin] 25 mg PO DAILY Discharge Medication List Cetirizine HCl [Zyrtec] 10 mg PO HS 04/02/21 [History] Cyanocobalamin (Vitamin B-12) [Vitamin B-12] 1,000 mcg PO HS 04/02/21 [History] Fluticasone Nasal [place] [Flonase Nasal [place]] 1 spray EA NOSTRIL HS 04/02/21 [History] Levothyroxine Sodium [Synthroid] 100 mcg PO DAILY 04/02/21 [History] [place] 3-6-7 1 cap PO HS 04/02/21 [History] Ubidecarenone [Co Q-10] 100 mg PO HS 04/02/21 [History] Cholecalciferol [Vitamin D3 (25 Mcg = 1000 Iu)] 25 mcg PO DAILY 05/24/21 [History] atenoloL [Tenormin] 25 mg PO DAILY 05/24/21 [History] Atorvastatin [Lipitor] 40 mg PO HS 06/06/21 [History] Aspirin 81 mg PO DAILY #30 tab 06/08/21 [Rx] Clopidogrel Bisulfate [Plavix] 75 mg PO DAILY #1 tab 06/08/21 [Rx] Famotidine [Pepcid] 20 mg PO DAILY #30 tab 06/08/21 [Rx] Follow up Appointment(s)/Referral(s): Marie Blunt MD [Primary Care Provider] - 1-2 days Natalee Rios MD [STAFF PHYSICIAN] - 2 Weeks Gelacio Larios MD [STAFF PHYSICIAN] - As Needed Mansoor Powers MD [STAFF PHYSICIAN] - 3 Weeks Ambulatory/Diagnostic Orders: Complete Blood Count w/diff [LAB.AMB] Time Frame: 1 Week, Location: None Selected Miscellaneous Lab Order [LAB.AMB] Time Frame: 1 Month, Location: None Selected Activity/Diet/Wound Care/Special Instructions: Continue aspirin/plavix for 21 days than discontinue aspirin 81 mg and continue on plavix 75 mg po daily in addition to lipitor 40 mg po daily for stroke prophylaxis. Discharge Disposition: HOME SELF-CARE
== END 2021-06-08 13:30 | disposition home or self-care (01) ==
LOC: EC 19:25 → 1SOBS 22:38 → 6NMEDSUR 06-07 03:53
PROVIDERS: ADMIT Hospitalist; ATTEND Hospitalist
DX: R42 Dizziness and giddiness (principal); R53.1 Weakness; I69.398 Other sequelae of cerebral infarction; H53.2 Diplopia; R26.9 Unspecified abnormalities of gait and mobility; E03.9 Hypothyroidism, unspecified; I47.1 Supraventricular tachycardia; H49.22 Sixth [abducent] nerve palsy, left eye; H49.00 Third [oculomotor] nerve palsy, unspecified eye; K21.9 Gastro-esophageal reflux disease without esophagitis; R94.31 Abnormal electrocardiogram [ECG] [EKG]; R74.8 Abnormal levels of other serum enzymes; I35.1 Nonrheumatic aortic (valve) insufficiency; I49.3 Ventricular premature depolarization; I49.1 Atrial premature depolarization; K76.89 Other specified diseases of liver; M41.9 Scoliosis, unspecified; H57.02 Anisocoria; Z20.822 Contact with and (suspected) exposure to COVID-19; Z79.890 Hormone replacement therapy; Z79.82 Long term (current) use of aspirin; Z79.899 Other long term (current) drug therapy; Z91.040 Latex allergy status; Z86.718 Personal history of other venous thrombosis and embolism; Z85.828 Personal history of other malignant neoplasm of skin; Z85.42 Personal history of malignant neoplasm of other parts of uterus; Z92.3 Personal history of irradiation; Z98.890 Other specified postprocedural states; Z95.818 Presence of other cardiac implants and grafts; Z80.1 Family history of malignant neoplasm of trachea, bronchus and lung; Z82.0 Family history of epilepsy and other diseases of the nervous system; Z81.2 Family history of tobacco abuse and dependence; Z82.69 Family history of other diseases of the musculoskeletal system and connective tissue
CPT/HCPCS: 99285; 36415; 93005; 80053; 80048; 84443; 83605; 83735; 84484; 85025 ×2; 85610; 85730; 81001; 87635; 71046; 76705; 70450; 70551; G0378 ×4

== ENCOUNTER 2023-04-08 07:59 | Day surgery (SDC) | payer MEDICARE ==
[2023-04-01 15:23] VITALS: BMI 23.7
[~2023-04-08 07:59] MED LIST: LACTATED RINGERS 1,000 ML IV SCH; LIDOCAINE 1% (10MG/ML) FOR IV START INTRADERMA PRN; ONDANSETRON 4 MG/2 ML VIAL IVP ONE; TETRACAINE 0.5% OPHTH (PF) DROPS 4 ML BTL OP PRN
[2023-04-08] MEDS: CYCLOPENTOLATE 1% OPHTH SOLN 2 ML BTL OP PRN ×3 (08:33→08:46)
[2023-04-08] MEDS: PHENYLEPHRINE 2.5% OPHTH DRP 2ML OP PRN ×3 (08:36→08:49)
[2023-04-08 08:43] LABS: Glucose,Whole Blood 91 mg/dL (70-110)
[2023-04-08 08:49] VITALS: RESP 16; TEMP 97
[2023-04-08] MEDS ORDERED: ONDANSETRON 4 MG/2 ML VIAL IVP ONE (08:52)
[2023-04-08] MEDS ORDERED: fentaNYL (PF) 50 MCG/ML 2 ML AMP ONE (10:01)
[2023-04-08] MEDS ORDERED: MIDAZOLAM 2 MG/2 ML VIAL ONE (10:01)
[2023-04-08] MEDS ORDERED: HYALURONATE SODIUM INTRAOCULAR 1 EACH SYRINGE (12MG/ML) INTRAOCULA ONE ×2 (10:09→10:26)
[2023-04-08] MEDS ORDERED: BALANCED SALT IRRIG SOLN COMB2 15 ML IRRIG.SOLN INTRAOCULA ONE ×2 (10:09→10:26)
[2023-04-08] MEDS ORDERED: LIDOCAINE 1% (PF) 10MG/ML VIAL MISCELLANE ONE ×2 (10:10→10:26)
[2023-04-08] MEDS: MOXIFLOXACIN HCL 0.5% DROPS 3 ML BTL OP PRN ×2 (10:10→10:27)
[2023-04-08] MEDS ORDERED: EPINEPHrine (PF) 0.3 ML in BALANCED SALT IRRIG SOLN COMB2 500 ML IRRIGATION ONE (10:11)
[2023-04-08] MEDS: TIMOLOL 0.5% OPHTH DROPS 5 ML BTL OP PRN ×2 (10:11→10:27)
--- NOTE | 2023-04-08 10:35 | P.OP ---
Date of Procedure: 04/08/23 Preoperative Diagnosis: NS & CS & PSC Postoperative Diagnosis: same Procedure(s) Performed: PIOL, OS Implants: MX60E 21.00 Anesthesia: MAC Surgeon: Jeremy Macdonald Pathology: none sent Condition: stable Disposition: same day Indications for Procedure: blurry vision Operative Findings: no complications
[2023-04-08 11:27] VITALS: BP 108/73; PULSE 69
--- NOTE | 2023-04-08 19:16 | OP ---
OPERATIVE REPORT DATE OF SERVICE : 04/08/2023 PREOPERATIVE DIAGNOSES: Nuclear sclerosis, cortical sclerosis, and posterior subcapsular cataract, left eye. POSTOPERATIVE DIAGNOSES: Nuclear sclerosis, cortical sclerosis, and posterior subcapsular cataract, left eye. OPERATION: Phacoemulsification of cataract and interocular lens implant, left eye. ESTIMATED BLOOD LOSS: Zero. SPECIMEN TAKEN: None. NARRATIVE: After obtaining the appropriate consent, the patient was brought to the operating room where the patient was placed under cardiac monitoring and prepped and draped in the usual sterile manner. At the 5 o'clock position, a 15-degree super sharp blade was used to create a paracentesis followed by instillation of 1% Xylocaine MPF 50:50 mix with BSS into the anterior chamber. This was followed by Amvisc viscoelastic to stabilize the anterior chamber. At the 3 o'clock position a self-sealing corneal flap incision was created using 2.8 mm timoteo keratome. A cystotome was used to initiate a continuous tear capsulorrhexis which was completed with the Utrata forceps. A Binkhorst cannula was used to hydrodissect the lens nucleus followed by hydrodelineation. Phacoemulsification of the lens was performed utilizing phacochop in 11.32 seconds at 10% power. The remaining cortical material was removed using the irrigation aspiration mode followed by additional 1% Xylocaine MPF into the anterior chamber followed by viscoelastic to stabilize the capsular bag. A [employer]ch [employer] Lomb MX 60E 21.0 diopter posterior chamber lens was placed into the capsular bag without difficulty. The remaining viscoelastic material was removed from the anterior chamber with the irrigation/aspiration. Balanced salt solution was used to normalize the intraocular pressure. The incision was checked for watertight integrity. The patient then received 2 drops of 0.5% timolol followed by 2 drops Vigamox, was lightly patched and shielded in the usual manner. There were no complications from the procedure. The patient tolerated the procedure well and was returned to recovery in good condition. MMODL / IJN: [id number] /
== END 2023-04-08 11:23 | disposition home or self-care (01) ==
LOC: OR 07:59
PROVIDERS: ATTEND Ophthalmology
DX: H25.12 Age-related nuclear cataract, left eye (principal); H52.4 Presbyopia; E03.9 Hypothyroidism, unspecified; I63.9 Cerebral infarction, unspecified; K21.9 Gastro-esophageal reflux disease without esophagitis; Z91.040 Latex allergy status; Z79.899 Other long term (current) drug therapy
CPT/HCPCS: 66984; C1780; J2250; J2405; J0171; J3010; J2001

== ENCOUNTER → 2023-04-29 | Day surgery (SDC) | payer MEDICARE ==
[~2023-04-29] MED LIST changes: +BALANCED SALT IRRIG SOLN COMB2 15 ML IRRIG.SOLN INTRAOCULA ONE; +EPINEPHrine (PF) 0.3 ML in BALANCED SALT IRRIG SOLN COMB2 500 ML IRRIGATION ONE; +HYALURONATE SODIUM INTRAOCULAR 1 EACH SYRINGE (12MG/ML) INTRAOCULA ONE; -LIDOCAINE 1% (10MG/ML) FOR IV START INTRADERMA PRN; +LIDOCAINE 1% (PF) 10MG/ML VIAL MISCELLANE ONE; +MIDAZOLAM 2 MG/2 ML VIAL ONE; +MOXIFLOXACIN HCL 0.5% DROPS 3 ML BTL OP PRN; -ONDANSETRON 4 MG/2 ML VIAL IVP ONE; +TIMOLOL 0.5% OPHTH DROPS 5 ML BTL OP PRN; +fentaNYL (PF) 50 MCG/ML 2 ML AMP ONE
[2023-04-29] MEDS: CYCLOPENTOLATE 1% OPHTH SOLN 2 ML BTL OP PRN ×3 (11:50→12:02)
[2023-04-29] MEDS: PHENYLEPHRINE 2.5% OPHTH DRP 2ML OP PRN ×3 (11:53→12:05)
[2023-04-29 12:08] LABS: Glucose,Whole Blood 80 mg/dL (70-110)
[2023-04-29 12:11] VITALS: TEMP 98
--- NOTE | 2023-04-29 13:28 | P.OP ---
Date of Procedure: 04/29/23 Preoperative Diagnosis: NS & PSC & CS Postoperative Diagnosis: same Procedure(s) Performed: PIOL, OD Implants: MX60E 20.50 Anesthesia: MAC Surgeon: Jeremy Macdonald Pathology: none sent Condition: stable Disposition: same day Indications for Procedure: blurry vision Operative Findings: mp complications
[2023-04-29 14:10] VITALS: BP 123/81; PULSE 56; RESP 16
--- NOTE | 2023-04-29 19:20 | OP ---
OPERATIVE REPORT DATE OF SERVICE : 04/29/2023 PREOPERATIVE DIAGNOSES: Nuclear sclerosis, cortical sclerosis, posterior subcapsular cataract right eye. POSTOPERATIVE DIAGNOSES: Nuclear sclerosis, cortical sclerosis, posterior subcapsular cataract right eye. OPERATION: Phacoemulsification of cataract and interocular lens implant, right eye. ESTIMATED BLOOD LOSS: Zero. SPECIMEN TAKEN: None. NARRATIVE: After obtaining the appropriate consent, the patient was brought to the operating room where the patient was placed under cardiac monitoring and prepped and draped in the usual sterile manner. At the 11 o'clock position, a 15-degree super sharp blade was used to create a paracentesis followed by instillation of 1% Xylocaine MPF 50:50 mix with BSS into the anterior chamber. This was followed by Amvisc viscoelastic to stabilize the anterior chamber. At the 9 o'clock position a self-sealing corneal flap incision was created using 2.8 mm timoteo keratome. A cystotome was used to initiate a continuous tear capsulorrhexis which was completed with the Utrata forceps. A Binkhorst cannula was used to hydrodissect the lens nucleus followed by hydrodelineation. Phacoemulsification of the lens was performed utilizing phacochop in 12.11 seconds at 6.2% power. The remaining cortical material was removed using the irrigation aspiration mode followed by additional 1% Xylocaine MPF into the anterior chamber followed by viscoelastic to stabilize the capsular bag. A [employer]ch [employer] Lomb MX60E 20.5 diopters posterior chamber lens was placed into the capsular bag without difficulty. The remaining viscoelastic material was removed from the anterior chamber with the irrigation/aspiration. Balanced salt solution was used to normalize the intraocular pressure. The incision was checked for watertight integrity. The patient then received 2 drops of 0.5% timolol followed by 2 drops Vigamox, was lightly patched and shielded in the usual manner. There were no complications from the procedure. The patient tolerated the procedure well and was returned to recovery in good condition. MMODL / IJN: [id number] /
== END | disposition home or self-care (01) ==
LOC: OR 11:24
PROVIDERS: ATTEND Ophthalmology
DX: H25.11 Age-related nuclear cataract, right eye (principal); E07.9 Disorder of thyroid, unspecified; E78.5 Hyperlipidemia, unspecified; I47.10 Supraventricular tachycardia, unspecified; E16.2 Hypoglycemia, unspecified; K21.9 Gastro-esophageal reflux disease without esophagitis; Z79.02 Long term (current) use of antithrombotics/antiplatelets; Z79.890 Hormone replacement therapy; Z79.899 Other long term (current) drug therapy; Z86.73 Personal history of transient ischemic attack (TIA), and cerebral infarction without residual deficits; Z86.718 Personal history of other venous thrombosis and embolism; Z91.040 Latex allergy status
CPT/HCPCS: 66984; C1780; J2250; J0171; J3010; J2001

== ENCOUNTER 2024-01-12 10:11 | Emergency (ER) | payer MEDICARE ==
[2024-01-12 10:20] VITALS: RESP 18; TEMP 98.2
[2024-01-12] MEDS: MECLIZINE 25 MG TAB PO STA (11:05)
--- NOTE | 2024-01-12 11:17 | ED ---
General Adult HPI - General Chief complaint: Dizziness Stated complaint: Vertigo Time Seen by Provider: 01/12/24 10:25 Source: patient, EMS, RN notes reviewed, old records reviewed Mode of arrival: EMS Limitations: no limitations - History of Present Illness Initial comments: This is a 73-year-old female who presents to the emergency department complain ing of dizziness. Patient states she woke up this morning sat on the edge of the bed and she felt like she was not can be able to stand up without falling over. Patient's states she had to be helped to the bathroom because she would have fallen over without assistance. Patient does have a history of vertigo. Patient states she had a headache this morning that lasted only a few minutes which is typical for her. Patient denies any headache currently. Patient denies any numbness or focal weakness. Patient denies chest pain difficulty breathing shortness of breath. Patient denies any recent fever chills or cough. - Related Data Home Medications Medication Instructions Recorded Confirmed Cetirizine HCl [Zyrtec] 10 mg PO HS 04/02/21 01/12/24 Fluticasone Nasal [place] [Flonase 1 spr EA NOSTRIL DAILY 04/02/21 01/12/24 Nasal [place]] Levothyroxine Sodium [Synthroid] 100 mcg PO DAILY 04/02/21 01/12/24 Atorvastatin [Lipitor] 40 mg PO HS 06/06/21 01/12/24 Clopidogrel Bisulfate [Plavix] 75 mg PO DAILY 04/01/23 01/12/24 Albuterol Inhaler [Ventolin Hfa 2 puff INHALATION RT-QID PRN 01/12/24 01/12/24 Inhaler] Budesonide [Pulmicort Flexhaler] 2 puff INHALATION RT-BID 01/12/24 01/12/24 Calcium Carbonate/Vitamin D3 1 tab PO DAILY 01/12/24 01/12/24 [Calcium 600 mg-Vit D3 10 mcg (400 Unit)] Magnesium(Unknown Dose) 1 tab PO DAILY 01/12/24 01/12/24 [place]-3/Dha/Epa/Fish Oil [[place]-3 1 cap PO DAILY 01/12/24 01/12/24 Fish Oil 1,000 mg Sfgl] Omeprazole 20 mg PO DAILY 01/12/24 01/12/24 atenoloL [Tenormin] 50 mg PO DAILY 01/12/24 01/12/24 Previous Rx's Medication Instructions Recorded Meclizine [Antivert] 25 mg PO TID #20 tab 01/12/24 Allergies Allergy/AdvReac Type Severity Reaction Status Date / Time Latex, Natural Rubber Allergy Redness Verified 01/12/24 13:43 and Itching fluorouracil AdvReac Diarrhea Verified 01/12/24 13:43 Review of Systems ROS Statement: Those systems with pertinent positive or pertinent negative responses have been documented in the HPI. ROS Other: All systems not noted in ROS Statement are negative. Past Medical History Past Medical History: Cancer, CVA/TIA, Deep Vein Thrombosis (DVT), Eye Disorder, GERD/Reflux, Musculoskeletal Disorder, Supraventricular Tachycardia (SVT), Thyroid Disorder Additional Past Medical History / Comment(s): Bilatereal cataracts. Diplopia when looking to the left and balance issues since TIA's. Hx cervical cancer with surgery, hx skin cancer on neck treated with radiation. Varicose veins, hx DVT in 1991. Hypoglycemia. Neck and back pain, scoliosis, Degenerative Joint Disease. Very infrequent migraines. History of Any Multi-Drug Resistant Organisms: None Reported Past Surgical History: Tonsillectomy Additional Past Surgical History / Comment(s): Uterine conization, artery or vein tied off due to DVT, left eye surgery. Past Anesthesia/Blood Transfusion Reactions: No Reported Reaction, Motion Sickness Additional Past Anesthesia/Blood Transfusion Reaction / Comment(s): HX VERTIGO. Past Psychological History: No Psychological Hx Reported Smoking Status: Never smoker Past Alcohol Use History: None Reported Past Drug Use History: None Reported - Past Family History Father Family Medical History: Cancer Additional Family Medical History / Comment(s): Father had lung cancer. He was a smoker. Mother Family Medical History: Deep Vein Thrombosis (DVT), Musculoskeletal Disorder, Neurologic Disorder Additional Family Medical History / Comment(s): Mother had Parkinson's. General Exam - General Exam Comments Initial Comments: GENERAL: Patient is well-developed and well-nourished. Patient is nontoxic and well- hydrated and is in mild distress. ENT: Neck is soft and supple. No significant lymphadenopathy is noted. Oropharynx is clear. Moist mucous membranes. Neck has full range of motion without eliciting any pain. EYES: The sclera were anicteric and conjunctiva were pink and moist. Extraocular movements were intact and pupils were equal round and reactive to light. Eyelids were unremarkable. PULMONARY: Unlabored respirations. Good breath sounds bilaterally. No audible rales rhonchi or wheezing was noted. CARDIOVASCULAR: There is a regular rate and rhythm without any murmurs gallops or rubs. ABDOMEN: Soft and nontender with normal bowel sounds. SKIN: Skin is clear with no lesions or rashes and otherwise unremarkable. NEUROLOGIC: Patient is alert and oriented x3. Cranial nerves II through XII are grossly intact. Motor and sensory are also intact. Normal speech, volume and content. Symmetrical smile. Finger-nose testing was normal bilaterally MUSCULOSKELETAL: Normal extremities with adequate strength and full range of motion. No lower extremity swelling or edema. No calf tenderness. LYMPHATICS: No significant lymphadenopathy is noted PSYCHIATRIC: Normal psychiatric evaluation. Limitations: no limitations Course Vital Signs 01/12/24 01/12/24 10:16 13:05 Temperature 98.2 F Pulse Rate 67 59 L Respiratory 18 18 Rate Blood Pressure 162/84 121/73 O2 Sat by Pulse 99 98 Oximetry Medical Decision Making - Medical Decision Making EKG is interpreted by myself but EKG shows a sinus bradycardia 57 bpm ND 211 QRS is 89 QT interval is 418 QTc is 413 Was pt. sent in by a medical professional or institution (, [facility], [facility], urgent care, hospital, or alf...) When possible be specific @ -No Did you speak to anyone other than the patient for history (EMS, parent, family, police, friend...)? What history was obtained from this source @ -No Did you review nursing and triage notes (agree or disagree)? Why? @ -I reviewed and agree with nursing and triage notes Were old charts reviewed (outside hosp., previous admission, EMS record, old EKG, old radiological studies, urgent care reports/EKG's, alf records)? Report findings @ -No old charts were reviewed Differential Diagnosis? @ -Differential Dizziness: Benign paroxysmal positional Vertigo, Meniere's disease, otitis media, acoustic neuroma, vertebrobasilar insufficiency, cerebellar stroke, encephalitis, hypovolemic, arrhythmia, coronary artery syndrome, anemia, this is not meant to be an all-inclusive list EKG interpreted by me (3pts min.). @ -As above X-rays interpreted by me (1pt min.). @ -Chest x-ray showed no acute normality CT interpreted by me (1pt min.). @ -None done U/S interpreted by me (1pt. min.). @ -None done What testing was considered but not performed or refused? (CT, X-rays, U/S, labs)? Why? @ -None What meds were considered but not given or refused? Why? @ -None Did you discuss the management of the patient with other professionals (professionals i.e. Dr., PA, FISH PITCHER, lab, RT, psych nurse, social media marketer, director of product management, teacher, custom protection officer, bottle caser)? Give summary @ -No Was smoking cessation discussed for >3mins.? @ -No Was critical care preformed (if so, how long)? @ -No Were there social determinants of health that impacted care today? How? (Homelessness, low income, unemployed, alcoholism, drug addiction, transportation, low edu. Level, literacy, decrease access to med. care, snf, rehab)? @ -No Was there de-escalation of care discussed even if they declined (Discuss DNR or withdrawal of care, Hospice)? DNR status @ -No What co-morbidities impacted this encounter? (DM, HTN, Smoking, COPD, CAD, Cancer, CVA, ARF, Chemo, Hep., AIDS, mental health diagnosis, sleep apnea, morbid obesity)? @ -None Was patient admitted / discharged? Hospital course, mention meds given and route, prescriptions, significant lab abnormalities, going to OR and other pertinent info. @ -Patient was given Antivert in the emergency department was able to ambulate to the bathroom on multiple occasions. Patient was feeling better but not back to baseline but she was willing to go home since she has a doctor appointment tomorrow. Patient will be given a prescription for Antivert Undiagnosed new problem with uncertain prognosis? @ -No Drug Therapy requiring intensive monitoring for toxicity (Heparin, Nitro, Insulin, Cardizem)? @ -No Were any procedures done? @ -No Diagnosis/symptom? @ -Vertigo Acute, or Chronic, or Acute on Chronic? @ -Acute Uncomplicated (without systemic symptoms) or Complicated (systemic symptoms)? @ -Complicated Side effects of treatment? @ -No Exacerbation, Progression, or Severe Exacerbation? @ -No Poses a threat to life or bodily function? How? (Chest pain, [place], [place], pneumonia, PE, COPD, DKA, ARF, appy, cholecystitis, CVA, Diverticulitis, Homicidal, Suicidal, threat to staff... and all critical care pts) @ -No - Lab Data Result diagrams: 01/12/24 11:04 01/12/24 11:04 Lab Results 01/12/24 01/12/24 01/12/24 Range/Units 11:04 11:04 11:04 WBC 7.7 (3.8-10.6) k/uL RBC 3.89 (3.80-5.40) m/uL Hgb 11.9 (11.4-16.0) gm/dL Hct 35.5 (34.0-46.0) % MCV 91.3 (80.0-100.0) fL MCH 30.6 (25.0-35.0) pg MCHC 33.5 (31.0-37.0) g/dL RDW 13.1 (11.5-15.5) % Plt Count 203 (150-450) k/uL MPV 7.5 Neutrophils % 79 % Lymphocytes % 13 % Monocytes % 5 % Eosinophils % 1 % Basophils % 0 % Neutrophils # 6.1 (1.3-7.7) k/uL Lymphocytes # 1.0 (1.0-4.8) k/uL Monocytes # 0.4 (0-1.0) k/uL Eosinophils # 0.1 (0-0.7) k/uL Basophils # 0.0 (0-0.2) k/uL PT 10.5 (10.0-12.5) sec INR 1.0 (<1.2) APTT 22.1 (22.0-30.0) sec Sodium 139 (137-145) mmol/L Potassium 4.0 (3.5-5.1) mmol/L Chloride 111 H (98-107) mmol/L Carbon Dioxide 24 (22-30) mmol/L Anion Gap 4 mmol/L BUN 24 H (7-17) mg/dL Creatinine 0.60 (0.52-1.04) mg/dL Est GFR (CKD-EPI)AfAm >90 (>60 ml/min/1.73 sqM) Est GFR (CKD-EPI)NonAf >90 (>60 ml/min/1.73 sqM) Glucose 82 (74-99) mg/dL Plasma Lactic Acid Jerman (0.7-2.0) mmol/L Calcium 9.1 (8.4-10.2) mg/dL Magnesium 2.0 (1.6-2.3) mg/dL Total Bilirubin 0.7 (0.2-1.3) mg/dL AST 32 (14-36) U/L ALT 18 (4-34) U/L Alkaline Phosphatase 61 (38-126) U/L Troponin I (0.000-0.034) ng/mL Total Protein 6.0 L (6.3-8.2) g/dL Albumin 3.6 (3.5-5.0) g/dL 01/12/24 01/12/24 Range/Units 11:04 11:04 WBC (3.8-10.6) k/uL RBC (3.80-5.40) m/uL Hgb (11.4-16.0) gm/dL Hct (34.0-46.0) % MCV (80.0-100.0) fL MCH (25.0-35.0) pg MCHC (31.0-37.0) g/dL RDW (11.5-15.5) % Plt Count (150-450) k/uL MPV Neutrophils % % Lymphocytes % % Monocytes % % Eosinophils % % Basophils % % Neutrophils # (1.3-7.7) k/uL Lymphocytes # (1.0-4.8) k/uL Monocytes # (0-1.0) k/uL Eosinophils # (0-0.7) k/uL Basophils # (0-0.2) k/uL PT (10.0-12.5) sec INR (<1.2) APTT (22.0-30.0) sec Sodium (137-145) mmol/L Potassium (3.5-5.1) mmol/L Chloride (98-107) mmol/L Carbon Dioxide (22-30) mmol/L Anion Gap mmol/L BUN (7-17) mg/dL Creatinine (0.52-1.04) mg/dL Est GFR (CKD-EPI)AfAm (>60 ml/min/1.73 sqM) Est GFR (CKD-EPI)NonAf (>60 ml/min/1.73 sqM) Glucose (74-99) mg/dL Plasma Lactic Acid Jerman 1.0 (0.7-2.0) mmol/L Calcium (8.4-10.2) mg/dL Magnesium (1.6-2.3) mg/dL Total Bilirubin (0.2-1.3) mg/dL AST (14-36) U/L ALT (4-34) U/L Alkaline Phosphatase (38-126) U/L Troponin I <0.012 (0.000-0.034) ng/mL Total Protein (6.3-8.2) g/dL Albumin (3.5-5.0) g/dL Disposition Clinical Impression: Vertigo Disposition: HOME SELF-CARE Instructions (If sedation given, give patient instructions): Vertigo (ED) Prescriptions: Meclizine [Antivert] 25 mg PO TID #20 tab Is patient prescribed a controlled substance at d/c from ED?: No Referrals: Marie Blunt MD [Primary Care Provider] - 01/13/24 9:45 am Time of Disposition: 14:44
[2024-01-12 11:33] LABS: Basophils % (A) 0 %; Eosinophils # (A) 0.1 k/uL (0-0.7); Eosinophils % (A) 1 %; HCT 35.5 % (34.0-46.0); HGB 11.9 gm/dL (11.4-16.0); Lymphocytes % (A) 13 %; MCH 30.6 pg (25.0-35.0); MCHC 33.5 g/dL (31.0-37.0); MCV 91.3 fL (80.0-100.0); Mean Platelet Volume 7.5; Monocytes # (A) 0.4 k/uL (0-1.0); Monocytes % (A) 5 %; Neutrophils # (A) 6.1 k/uL (1.3-7.7); Neutrophils % (A) 79 %; Platelet Count 203 k/uL (150-450); RBC 3.89 m/uL (3.80-5.40); RDW 13.1 % (11.5-15.5); WBC 7.7 k/uL (3.8-10.6)
--- NOTE | 2024-01-12 11:47 | XR ---
EXAMINATION TYPE: XR chest 2V DATE OF EXAM: 01/12/2024 COMPARISON: 06/06/21 HISTORY: Shortness of breath TECHNIQUE: Frontal and lateral views of the chest are obtained. FINDINGS: Scattered senescent parenchymal changes noted. Hyperinflation compatible with COPD. No evidence for infiltrate. No evidence for atelectasis. Heart size is stable. Mediastinal structures are stable and grossly unremarkable. No evidence for hilar prominence. Degenerative changes dorsal spine. IMPRESSION: 1. No evidence for acute pulmonary disease. [facility], , 01/12/2024 11:45 AM
[2024-01-12 11:50] LABS: ALT 18 U/L (4-34); AST 32 U/L (14-36); African American GFR (CKD) >90 (>60 ml/min/1.73 sqM); Albumin 3.6 g/dL (3.5-5.0); Alkaline Phosphatase 61 U/L (38-126); Anion Gap 4 mmol/L; Blood Urea Nitrogen 24 mg/dL (7-17); Calcium 9.1 mg/dL (8.4-10.2); Carbon Dioxide 24 mmol/L (22-30); Chloride 111 mmol/L (98-107); Glucose 82 mg/dL (74-99); Non-African American GFR(CKD) >90 (>60 ml/min/1.73 sqM); Sodium 139 mmol/L (137-145); Total Bilirubin 0.7 mg/dL (0.2-1.3)
[2024-01-12 12:17] LABS: Partial Thromboplastin Time 22.1 sec (22.0-30.0); Prothrombin Time 10.5 sec (10.0-12.5)
[2024-01-12 15:10] VITALS: BP 103/67; PULSE 63
== END 2024-01-12 15:22 | disposition home or self-care (01) ==
LOC: EC 10:11
DX: H81.10 Benign paroxysmal vertigo, unspecified ear
CPT/HCPCS: 36415; 71046; 80053; 83605; 83735; 84484; 85025; 85610; 85730; 93005; 99285

== ENCOUNTER 2024-08-25 12:42 | Day surgery (SDC) | payer MEDICARE ==
[2024-08-25] MEDS: ALPRAZolam 0.25 MG TAB PO STA (13:52)
[2024-08-25 14:12] VITALS: RESP 18; TEMP 98.1
[2024-08-25 15:08] VITALS: BP 138/80; PULSE 82
--- NOTE | 2024-08-26 10:47 | US ---
EXAMINATION TYPE: US FNA thyroid first lesion DATE OF EXAM: 08/25/2024 2:49 PM CLINICAL INDICATION:Female, 74 years old with history of E04.1 thyroid nodule; , thyroid nodule. COMPARISON: Outside thyroid report ATTENDING: Dr. Negrete PROCEDURE: Informed consent was obtained. The risks and benefits of the procedure were discussed with the patien t. This included discussion of possible nondiagnostic results . Timeout procedure was performed Ultrasound imaging demonstrates a right sided solid nodule measuring 2.3 x 1.7 x 2.0 cm that is wider greater than tall and is isoechoic with smooth margins and with punctate echogenic foci, TR 4 lesio n. The patient was prepped, draped in the usual sterile fashion, and locally anesthetized with 1% lidoca ine. Five fine needle aspiration were then performed with a 25 gauge needle. Samples were sent to [facility] pathology department for further analysis. Patient tolerated the procedure without incident and wa s sent home in stable condition. IMPRESSION: Successful ultrasound guided fine needle aspiration of TR4 right sided thyroid nodule. Intermediate to high index of suspicion noted at time of procedure [facility], , 08/26/2024 10:45 AM
== END 2024-08-25 15:10 | disposition home or self-care (01) ==
LOC: RADPROMAIN 12:42
PROVIDERS: ATTEND Internal Medicine
DX: E04.1 Nontoxic single thyroid nodule (principal); Z85.41 Personal history of malignant neoplasm of cervix uteri; Z85.828 Personal history of other malignant neoplasm of skin
CPT/HCPCS: 10005; 88173; 88305